=== PATIENT | male | born 1940 | race Caucasian/White ===

== ENCOUNTER → 2017-09-08 | Day surgery (SDC) | payer MEDICARE, BC ==
[~2017-09-08] MED LIST: Dexamethasone 4 MG/ML SDV IV ONE; Midazolam 1 MG/ML 2 ML SDV IV ONE; Povidone-Iodine 5% Sterile Ophth Soln 30 ML Bottle ONE; Sodium Chloride 0.9% 10 ML Syringe IV ONE
[2017-09-08] MEDS: Proparacaine 0.5% Ophth Soln 15 ML Bottle EYELF ONE (10:39)
[2017-09-08] MEDS: Sodium Chloride 0.9% 10 ML Syringe FLUSH SCH (10:41)
[2017-09-08] MEDS: Povidone-Iodine 5% Sterile Ophth Soln 30 ML Bottle EYELF ONE (10:42)
[2017-09-08] MEDS: Dexamethasone/Tobramycin 0.1-0.3% Ophth Susp 2.5 ML Bottle EYELF ONE (10:44)
[2017-09-08] MEDS: Phenylephrine 10% Ophth Soln 5 ML Bot EYELF ONE (10:46)
[2017-09-08] MEDS: Timolol Maleate 0.5% Ophth Soln 5 ML Bottle EYELF ONE (10:47)
[2017-09-08] MEDS: Dilation Soln 1 EA EACH EYELF ONE (10:48)
[2017-09-08] MEDS: Tetracaine HCl/PF 0.5% 4 ML Bottle EYELF ONE (11:23)
[2017-09-08] MEDS: Lidocaine 1% 30 ML SDV ONE (11:23)
[2017-09-08] MEDS: Apraclonidine 0.5% Ophth Soln 5 ML Bot EYELF ONE (11:23)
[2017-09-08] MEDS: Dexamethasone/Neomycin/Polymyxin B Ophth Oint 3.5 GM Tube EYELF ONE (11:23)
[2017-09-08] MEDS: Diclofenac Sodium 0.1% Ophth Soln 5 ML Bottle EYELF ONE (11:24)
[2017-09-08] MEDS: Chondroitin Sulfate/Hyaluronate Sodium Ophth Inj 0.5 ML Syringe IOCULAR ONE (11:24)
[2017-09-08] MEDS: Vancomycin 500 MG SDV EYELF ONE (11:24)
[2017-09-08] MEDS: Balanced Salt Solution Ophth Irrig 500 ML Bottle IOCULAR ONE (11:25)
[2017-09-08 13:18] VITALS: BP 151/84
--- NOTE | 2017-09-08 13:25 | OR ---
DATE: 09/08/2017 PREOPERATIVE DIAGNOSIS: Visually significant mixed senile cataract, left eye. POSTOPERATIVE DIAGNOSIS: Visually significant mixed senile cataract, left eye. PROCEDURE: Extracapsular cataract extraction with intraocular lens implant, left eye. ANESTHESIA: Topical/local MAC. COMPLICATIONS: None. INDICATION: Mr. Benton was seen in the clinic. He has had complaints of blurred vision, difficulty reading, difficulty seeing pill bottles. His clinical examination reveals 2 to 3+ mixed nuclear and central cortical cataract. I explained options to Mr. Benton, offered cataract surgery, and explained risks preoperatively including the potential for infection, retinal detachment, loss of vision, amongst others. We discussed implant options. He has requested a monofocal implant. OPERATIVE DESCRIPTION: After informed consent was obtained and the risks, benefits, and alternatives were explained, the patient was brought to the operative suite and topical anesthesia was administered. The patient was then prepped and draped in the sterile fashion and attention was placed on the left eye. A sterile lid speculum was placed into the left eye to allow operative exposure. A full-thickness paracentesis was made in the temporal portion of the operative eye. Preservative-free lidocaine 0.1 mL was injected into the anterior chamber followed by viscoelastic. A full-thickness corneal incision was then made into the anterior chamber. A bent needle cystotome was used to create a small agnieszka in the anterior capsule. The capsulorrhexis forceps was then used to create a 360-degree curvilinear capsulorrhexis. The nucleus was then removed using a phacoemulsification handpiece and the remaining cortical material was then removed with irrigation and aspiration handpiece. Following removal of the cortical material, the capsular bag was then inspected and noted to be free of any holes or tears. Viscoelastic was then injected into the capsular bag and the intraocular lens was inserted into the capsular bag. The viscoelastic material was then removed from both the anterior and posterior chambers and from behind the IOL. The lens and capsular bag were then reinspected. The IOL was well centered and the capsular bag intact. The wound and paracentesis sites were inspected and hydrated with balanced saline solution. Both were found to be self- sealing. The intraocular pressure was assessed digitally and found to be within normal range. A good red reflex was noted at the completion of the procedure. No complications occurred during the operation. At the completion of the procedure, Maxitrol, Voltaren, and Iopidine drops were placed into the operative eye. A sterile eye shield was placed over the operative eye and the patient was transported to the postoperative recovery area having tolerated the procedure well. Postoperative instructions were given along with a postoperative appointment. The patient was advised to call with any questions or concerns. No complications occurred. [facility] /[id number]
== END | disposition home or self-care (01) ==
LOC: DL.SDS 10:22
PROVIDERS: ATTEND Ophthalmology
DX: H25.811 Combined forms of age-related cataract, right eye (principal); I10 Essential (primary) hypertension; Z98.890 Other specified postprocedural states; Z79.82 Long term (current) use of aspirin; Z79.899 Other long term (current) drug therapy; Z88.1 Allergy status to other antibiotic agents
CPT/HCPCS: 00142; 66984; A9270; C1780; J1100; J2250; J3370; J7050

== ENCOUNTER 2017-09-15 08:55 | Day surgery (SDC) | payer MEDICARE, BC ==
[2017-09-15] MEDS ORDERED: Dexamethasone 4 MG/ML SDV IV ONE (08:56)
[2017-09-15] MEDS ORDERED: Sodium Chloride 0.9% 10 ML Syringe IV ONE (08:56)
[2017-09-15] MEDS ORDERED: Midazolam 1 MG/ML 2 ML SDV IV ONE (08:56)
[2017-09-15] MEDS ORDERED: Sodium Chloride 0.9% 10 ML Syringe FLUSH ONE (09:38)
[2017-09-15] MEDS ORDERED: Timolol Maleate 0.5% Ophth Soln 5 ML Bottle EYERT ONE (10:00)
[2017-09-15] MEDS ORDERED: Phenylephrine 10% Ophth Soln 5 ML Bot EYERT ONE (10:00)
[2017-09-15] MEDS ORDERED: Proparacaine 0.5% Ophth Soln 15 ML Bottle EYERT ONE (10:00)
[2017-09-15] MEDS ORDERED: Povidone-Iodine 5% Sterile Ophth Soln 30 ML Bottle EYERT ONE ×2 (10:00→10:21)
[2017-09-15] MEDS ORDERED: Dexamethasone/Tobramycin 0.1-0.3% Ophth Susp 2.5 ML Bottle EYERT ONE (10:00)
[2017-09-15] MEDS ORDERED: Dilation Soln 1 EA EACH EYERT ONE (10:00)
[2017-09-15] MEDS ORDERED: Tetracaine HCl/PF 0.5% 4 ML Bottle EYERT ONE (10:20)
[2017-09-15] MEDS ORDERED: Lidocaine 1% 30 ML SDV ONE (10:21)
[2017-09-15] MEDS ORDERED: Apraclonidine 0.5% Ophth Soln 5 ML Bot EYERT ONE (10:21)
[2017-09-15] MEDS ORDERED: Vancomycin 500 MG SDV EYERT ONE (10:22)
[2017-09-15] MEDS ORDERED: Dexamethasone/Neomycin/Polymyxin B Ophth Oint 3.5 GM Tube EYERT ONE (10:22)
[2017-09-15] MEDS ORDERED: Balanced Salt Solution Ophth Irrig 500 ML Bottle IOCULAR ONE (10:23)
[2017-09-15] MEDS ORDERED: Chondroitin Sulfate/Hyaluronate Sodium Ophth Inj 0.5 ML Syringe IOCULAR ONE (10:23)
--- NOTE | 2017-09-15 11:06 | OR ---
DATE: 09/15/2017 PREOPERATIVE DIAGNOSIS: Visually significant mixed cataract, right eye. POSTOPERATIVE DIAGNOSIS: Visually significant mixed cataract, right eye. PROCEDURE: Extracapsular cataract extraction with intraocular lens implant, right eye. ANESTHESIA: Topical/local MAC. COMPLICATIONS: None. INDICATION: Mr. Benton was seen in the clinic with complaints of blurred vision. Clinical examination reveals visually significant mixed nuclear and cortical cataract. He is symptomatic and unhappy with his vision. He requested surgery to improve vision and function. He requested a monofocal implant. OPERATIVE DESCRIPTION: After informed consent was obtained and the risks, benefits, and alternatives were explained, the patient was brought to the operative suite and topical anesthesia was administered. The patient was then prepped and draped in the sterile fashion and attention was placed on the right eye. A sterile lid speculum was placed into the right eye to allow operative exposure. A full-thickness paracentesis was made in the temporal portion of the operative eye. Preservative-free lidocaine 0.1 mL was injected into the anterior chamber followed by viscoelastic. A full-thickness corneal incision was then made into the anterior chamber. A bent needle cystotome was used to create a small agnieszka in the anterior capsule. The capsulorrhexis forceps was then used to create a 360-degree curvilinear capsulorrhexis. The nucleus was then removed using a phacoemulsification handpiece and the remaining cortical material was then removed with irrigation and aspiration handpiece. Following removal of the cortical material, the capsular bag was then inspected and noted to be free of any holes or tears. Viscoelastic was then injected into the capsular bag and the intraocular lens was inserted into the capsular bag. The viscoelastic material was then removed from both the anterior and posterior chambers and from behind the IOL. The lens and capsular bag were then reinspected. The IOL was well centered and the capsular bag intact. The wound and paracentesis sites were inspected and hydrated with balanced saline solution. Both were found to be self- sealing. The intraocular pressure was assessed digitally and found to be within normal range. A good red reflex was noted at the completion of the procedure. No complications occurred during the operation. At the completion of the procedure, Maxitrol, Voltaren, and Iopidine drops were placed into the operative eye. A sterile eye shield was placed over the operative eye and the patient was transported to the postoperative recovery area having tolerated the procedure well. Postoperative instructions were given along with a postoperative appointment. The patient was advised to call with any questions or concerns. No complications occurred. [facility] /[id number]
[2017-09-15 13:33] VITALS: BP 148/81
== END 2017-09-15 12:00 | disposition home or self-care (01) ==
LOC: DL.SDS 08:55
PROVIDERS: ATTEND Ophthalmology
DX: H25.811 Combined forms of age-related cataract, right eye (principal); I10 Essential (primary) hypertension; Z88.1 Allergy status to other antibiotic agents; Z79.899 Other long term (current) drug therapy
CPT/HCPCS: 00142; 66984; A9270; J1100; J2250; J3370; J7050; V2632

== ENCOUNTER 2019-06-16 17:21 | Observation (INO) | payer MEDICARE, BC ==
[2019-06-16] MEDS ORDERED: Morphine 2 MG/ML Syringe IVPUSH PRN (18:49)
[2019-06-16] MEDS ORDERED: Acetaminophen/HYDROcodone 325-10 MG Tab PO PRN (18:49)
[2019-06-16] MEDS ORDERED: IPRATROPIUM NASBOTH PRN (18:57)
[2019-06-16] MEDS ORDERED: Primidone 50 MG Tab PO SCH (19:00)
[2019-06-16] MEDS ORDERED: Ascorbic Acid 500 MG Tab PO SCH (19:00)
[2019-06-16] MEDS ORDERED: Sodium Chloride 0.9% 10 ML Syringe FLUSH PRN (19:15)
--- NOTE | 2019-06-16 19:15 | PCM.HP ---
H&P History of Present Illness - General Date of Service: 06/16/19 Admit Problem/Dx: Admission Diagnosis/Problem Admission Diagnosis/Problem Hyponatremia Source of Information: Patient, Family - History of Present Illness Initial Comments - Free Text/Narative: Mr. Benton is a 79-year-old male with past medical history significant for seizure disorder, prostate cancer currently on Lupron with worsening PSA, multiple sclerosis with lower extremity weakness and neurogenic bladder, hypertension, celiac disease, memory impairment was transferred to the hospital from outpatient appointment for further management of generalized weakness and back pain. Patient has been unable to stand since September of this year. Patient also had chronic indwelling [place] placed around the same time. said that approximately 4 weeks ago, she noticed foul-smelling urine. Urine cultures were obtained last week after patient developed an episode of back pain and he was positive for pseudomonas aeruginosa and Providencia rettgeri. Patient was treated with Bactrim for the past week, however back pain continued to be an issue. He presented today to outpatient appointment with primary care [employer]. Given continued back pain, and concern for UTI with resistant bacteria, patient was transferred here for further care. Of note, lab work today showed negative white blood cell count, but did show slight hyponatremia at 128. Upon interview , patient and family reported that back pain is mainly mechanical and related to position. Patient describes it as a band on the lower back, alleviated with laying down, exacerbated by sitting up from his chair. Patient denies any fevers, chills, any other systemic symptoms. Family said that his allergy to ciprofloxacin is diarrhea. Lower Back Pain Score (Numeric/FACES): 10 - Related Data Allergies/Adverse Reactions: Allergies Allergy/AdvReac Type Severity Reaction Status Date / Time ciprofloxacin [From Cipro] Allergy Mouth Sores Verified 06/16/19 17:40 nitrofurantoin Allergy Cannot Verified 06/16/19 17:40 [From Macrobid] Remember Home Medications: Home Meds Ascorbic Acid 1,000 mg PO .NOON 04/09/14 [History] Baclofen 20 mg PO BID 04/09/14 [History] Calcium Carb/Vitamin D3/Vit K1 [Calcium + D Soft Chewable Tab] 1 tab PO TIDAC [History] Donepezil HCl 10 mg PO BEDTIME 04/09/14 [History] Ipratropium [Atrovent 0.03% Nasal [place]] 2 sprays NASBOTH BID PRN 04/09/14 [ History] Leuprolide [Lupron Depot 4-Month] 30 mg IM .[id number] 04/09/14 [History] Multivitamin [Multi-Vitamin Daily] 2 tab PO DAILY 04/09/14 [History] Bass[place]-3/DHA/Epa/Fish Oil [Fish Oil 1,000 mg Softgel] 600 mg PO DAILY 04/09/14 [ History] Primidone 50 mg PO .SUPPER 04/09/14 [History] Valproic Acid [Depakene] 250 mg PO .MORNING,NOON 04/09/14 [History] Aspirin [Adult Low Dose Aspirin EC] 81 mg PO DAILY 07/03/16 [History] Cyanocobalamin (Vitamin B-12) [Vitamin B-12] 1,000 mcg PO DAILY 07/03/16 [ History] Omeprazole 20 mg PO DAILY 07/03/16 [History] Propranolol HCl 80 mg PO BID 07/03/16 [History] Lactobacillus Rhamnosus R0011 [Probiotic Digestive Care] 1 cap PO DAILY [History] Cranberry Fruit Concentrate [Cranberry] 900 mg PO .NOON, SUPPER 03/01/19 [ History] Valproic Acid 500 mg PO BEDTIME 03/01/19 [History] Cannabidiol (Cbd) Extract [CBD Oil] 1 drop TOP BID 06/16/19 [History] Dextromethorphan/guaiFENesin [Mucinex DM ER 600-30 MG] 1 tab PO BID PRN [History] Ergocalciferol (Vitamin D2) [Vitamin D2] 50,000 unit PO .TWICE A WEEK 06/16/19 [ History] Oxybutynin 5 mg PO BEDTIME 06/16/19 [History] Sulfamethoxazole/Trimethoprim [Bactrim 400-80 MG] 80 - 400 mg PO BID 06/16/19 [ History] guaiFENesin [Robitussin] 100 mg PO Q6H PRN 06/16/19 [History] Past Medical History - Past Health History Medical/Surgical History: Denies Medical/Surgical History HEENT History: Reports: Cataract, Impaired Vision Cardiovascular History: Reports: Hypertension Gastrointestinal History: Reports: Celiac Disease Genitourinary History: Reports: Retention, Urinary, UTI, Recurrent Other Genitourinary History: Sheffield cath Musculoskeletal History: Reports: Connective Tissue Disease, Osteoporosis, Other (See Below) Other Musculoskeletal History: Multiple Sclerosis, utilizes an electric scooter Neurological History: Reports: MS Other Neuro History: Seizures 2008 Oncologic (Cancer) History: Reports: Prostate Other Dermatologic History: none - Infectious Disease History Infectious Disease History: Reports: Chicken Pox - Past Surgical History HEENT Surgical History: Reports: None Cardiovascular Surgical History: Reports: None GI Surgical History: Reports: Hernia Repair/Other Male Surgical History: Reports: None Neurological Surgical History: Reports: None Musculoskeletal Surgical History: Reports: None Oncologic Surgical History: Reports: None Social & Family History - Family History Family Medical History: Noncontributory HEENT: Reports: Cataract - Tobacco Use Smoking Status *Q: Never Smoker Second Hand Smoke Exposure: No - Caffeine Use Caffeine Use: Reports: None - Recreational Drug Use Recreational Drug Use: No Recreational Drug Type: Reports: Marijuana/Hashish Recreational Drug Use Frequency: Daily - Living Situation & Occupation Living situation: Reports: , with Family Occupation: Disabled H&P Review of Systems - Review of Systems: Review Of Systems: Comprehensive ROS is negative, except as noted in HPI. Exam - Exam Exam: See Below - Vital Signs Vital Signs: Last Vital Signs Temp 36.2 C 06/16/19 18:16 Pulse 68 06/16/19 18:16 Resp 20 06/16/19 18:16 BP 176/82 H 06/16/19 18:16 Pulse Ox 96 06/16/19 18:16 Weight: 67.086 kg - Exam General: Alert, Cooperative Lungs: Clear to Auscultation, Normal Respiratory Effort Cardiovascular: Regular Rate, Regular Rhythm GI/Abdominal Exam: Normal Bowel Sounds, Soft, Non-Tender, Other (Sheffield in place) Extremities: Normal Inspection, No Pedal Edema Neurological: Other (Unable to lift left lower extremity against gravity, unable to lift right lower extremity against gravity, left is weaker than right) Neuro Extensive - Mental Status: Alert, Normal Mood/Affect Psychiatric: Alert, Normal Affect, Normal Mood - Patient Data Result Diagrams: 06/16/19 19:15 Imaging Impressions Last 24 hrs: Interpretation: 1. Severe dextrorotatory low lumbar scoliosis with signs of multilevel disc disease and hypertrophic spondylosis. Marked compression or insufficiency fracture T10 vertebral body with prominent Schmorl's node and early collapse of the L1 vertebra. 2. Normal reniform size and configuration bilaterally. Isolated tiny punctate calcifications respectively lower pole calyx left kidney and midpole contralateral right kidney (with adjacent 13 mm diameter cyst) i.e. urolithiasis. No pyelocaliectasis or ureterectasis. 3. Indwelling urinary catheter. Irregularly thickened small volume unenhanced urinary bladder. No stones. 4. Large 10 x 12 mm oval calcification RLQ that may be in normal caliber appendix i.e. appendicolith. No associated inflammatory changes or abscess. No sign of mechanical bowel obstruction. 5. Ectatic aorta with some scattered calcifications normal caliber aortoiliac vessels. 6. Inhomogeneously dense prostate gland (urethral catheter). 7. Contracted gallbladder RUQ. Liver, stomach, spleen, pancreas and adrenal glands unremarkable. Atelectasis and/or infiltrate posterior segment right lower lobe ( aspiration? Bronchiectasis?). CONCLUSION: Bilateral nephrolithiasis without associated signs of obstructive uropathy. Abnormal prostate gland. Calcified appendicolith RLQ. Insufficiency fractures T10 and L1 vertebral bodies. Rotoscoliosis and multilevel disc disease. Bronchiectasis. Problem List Initiated/Reviewed/Updated: Yes Orders Last 24hrs: Active Orders 24 hr Category Date Time Status Admission Status [Patient Status] [ADT] Routine ADT 06/16/19 17:30 Active Patient Status [ADT] Routine ADT 06/16/19 18:49 Ordered Oxygen Therapy [RC] PRN Care 06/16/19 18:49 Ordered Up With Assistance [RC] ASDIRECTED Care 06/16/19 18:49 Ordered VTE/DVT Education [RC] PER UNIT ROUTINE Care 06/16/19 18:49 Ordered Vital Signs [RC] Q4H Care 06/16/19 18:49 Ordered OT Evaluation and Treatment [CONS] Routine Cons 06/16/19 18:49 Ordered PT Evaluation and Treatment [CONS] Routine Cons 06/16/19 18:49 Ordered Regular Diet [DIET] Diet 06/16/19 Dinner Ordered BASIC METABOLIC PANEL,BMP [CHEM] AM Lab 06/17/19 05:11 Ordered BASIC METABOLIC PANEL,BMP [CHEM] Routine Lab 06/16/19 18:49 Ordered CBC WITH AUTO DIFF [HEME] AM Lab 06/17/19 05:11 Ordered CBC WITH AUTO DIFF [HEME] Routine Lab 06/16/19 18:49 Ordered MAGNESIUM [CHEM] Routine Lab 06/16/19 18:49 Ordered PHOSPHORUS [CHEM] Routine Lab 06/16/19 18:49 Ordered Acetaminophen/HYDROcodone [[place] 325-10 MG] Med 06/16/19 18:49 Ordered 1 tab PO Q4H PRN Ascorbic Acid [Vitamin C] Med 06/16/19 19:00 Ordered 1,000 mg PO .NOON Aspirin [Halfprin] Med 06/17/19 09:00 Ordered 81 mg PO DAILY Baclofen [Baclofen] Med 06/16/19 21:00 Ordered 20 mg PO BID Calcium Carb/Vitamin D3/Vit K1 [Calcium + D Soft Med 06/17/19 06:00 Ordered Chewable Tab] 1 tab PO TIDAC Cannabidiol (Cbd) Extract [CBD Oil] Med 06/16/19 21:00 Ordered 1 drop TOP BID Cranberry Fruit Concentrate [Cranberry] Med 06/16/19 19:00 Ordered 900 mg PO .NOON, SUPPER Cyanocobalamin (Vitamin B-12) [Vitamin B-12] Med 06/17/19 09:00 Ordered 1,000 mcg PO DAILY Donepezil [Aricept] Med 06/16/19 21:00 Ordered 10 mg PO BEDTIME Enoxaparin [Lovenox] Med 06/17/19 09:00 Ordered 40 mg SUBCUT DAILY Ergocalciferol (Vitamin D2) [Vitamin D2] Med 06/16/19 19:00 Ordered 50,000 unit PO .TWICE A WEEK Ipratropium [Atrovent 0.03% Nasal [place]] Med 06/16/19 18:57 Ordered 2 sprays NASBOTH BID PRN Morphine Med 06/16/19 18:49 Ordered 2 mg IVPUSH Q2H PRN Multivitamin [Multi-Vitamin Daily] Med 06/17/19 09:00 Ordered 2 tab PO DAILY Bassett-3/DHA/Epa/Fish Oil [Fish Oil 1,000 mg Softgel] Med 06/17/19 09:00 Ordered 600 mg PO DAILY Omeprazole Med 06/17/19 09:00 Ordered 20 mg PO DAILY Oxybutynin Med 06/16/19 21:00 Ordered 5 mg PO BEDTIME Primidone [Mysoline] Med 06/16/19 19:00 Ordered 50 mg PO .SUPPER Propranolol HCl [Propranolol HCl] Med 06/16/19 21:00 Ordered 80 mg PO BID Valproic Acid [Depakene] Med 06/16/19 19:00 Ordered 250 mg PO .MORNING,NOON Valproic Acid [Depakene] Med 06/16/19 21:00 Ordered 500 mg PO BEDTIME Foot Pump [OM.PC] Per Unit Routine Oth 06/16/19 18:54 Ordered Resuscitation Status Routine Resus Stat 06/16/19 18:49 Ordered Medication Orders Hydrocodone Bitart/Acetaminophen ([place] 325-10 Mg) 1 tab PO Q4H PRN PRN Reason: Pain (moderate 4-6) Ascorbic Acid (Vitamin C) 1,000 mg PO .NOON ALEXY Aspirin (Halfprin) 81 mg PO DAILY ALXEY Donepezil HCl (Aricept) 10 mg PO BEDTIME ALEXY Enoxaparin Sodium (Lovenox) 40 mg SUBCUT DAILY ALEXY Ergocalciferol (Vitamin D2) mg PO .TWICE A WEEK ALEXY Morphine Sulfate (Morphine) 2 mg IVPUSH Q2H PRN PRN Reason: Pain (severe 7-10) Non-Formulary Medication (Ipratropium [Atrovent 0.03% Nasal [place]]) 2 sprays NASBOTH BID PRN PRN Reason: Allergies Non-Formulary Medication (Cranberry Fruit Concentrate [Cranberry]) 900 mg PO .NOON, SUPPER ALEXY Non-Formulary Medication (Baclofen [Baclofen]) 20 mg PO BID ALEXY Non-Formulary Medication (Cannabidiol (Cbd) Extract [Cbd Oil]) 1 drop TOP BID ALEXY Non-Formulary Medication (Propranolol Hcl [Propranolol Hcl]) 80 mg PO BID ALEXY Non-Formulary Medication (Calcium Carb/Vitamin D3/Vit K1 [Calcium + D Soft Chewable Tab]) 1 tab PO TIDAC ALEXY Non-Formulary Medication (Cyanocobalamin (Vitamin B-12) [Vitamin B-12]) 1,000 mcg PO DAILY ALEXY Non-Formulary Medication (Multivitamin [Multi-Vitamin Daily]) 2 tab PO DAILY ALEXY Non-Formulary Medication (Bassett-3/Dha/Epa/Fish Oil [Fish Oil 1,000 Mg Softgel]) 600 mg PO DAILY ALEXY Omeprazole (Omeprazole) 20 mg PO DAILY ALEXY Oxybutynin Chloride (Oxybutynin) 5 mg PO BEDTIME ALEXY Primidone (Mysoline) 50 mg PO .SUPPER ALEXY Valproic Acid (Depakene) 250 mg PO .MORNING,NOON [facility] Valproic Acid (Depakene) 500 mg PO BEDTIME [facility] Assessment/Plan Comment:: Intractable back pain No evidence of metastatic disease on CT We will start patient on hydrocodone, and will give IV morphine for severe pain Patient is already on baclofen, unclear if he would benefit from adding Flexeril Patient is scheduled to have PET scan with Dr. Marcum on June 23 Hyponatremia mild Could be related to dehydration We will start patient on IV normal saline Check BMP tomorrow MS with neurogenic bladder Continue home oxybutynin, baclofen Memory impairment donepezil Positive urine cultures Likely colonizers as patient does not have any evidence of systemic infections, and back pain is unrelated to presence of bacteria Discussed with family, will hold off any more antibiotics Seizure disorder continue home antiepileptics Celiac disease Gluten-free diet Hypertension Continue home propranolol DVT prophylaxis Lovenox
[2019-06-16 19:39] LABS: ANION GAP 13.1; CHLORIDE,CL 90 mmol/L (101-111); SODIUM,NA 127 mmol/L (135-145)
[2019-06-16] MEDS: Sodium Chloride 0.9% 1,000 ML IV SCH (19:58)
[2019-06-16] MEDS ORDERED: PRIMIDONE 50 MG PO SCH (20:25)
[2019-06-16] MEDS ORDERED: OXYBUTYNIN 5 MG PO SCH (21:00)
[2019-06-16] MEDS ORDERED: Baclofen 10 MG Tab PO SCH (21:00)
[2019-06-16] MEDS ORDERED: CANNABIDIOL TOP SCH (21:00)
[2019-06-16] MEDS ORDERED: Donepezil 10 MG Tab**OWN MED PO SCH (21:00)
[2019-06-16] MEDS ORDERED: VALPROIC ACID 250 MG PO SCH (21:00)
[2019-06-16] MEDS: PROPRANOLOL 80 MG PO SCH (21:24)
[2019-06-16] MEDS: [UNRECOGNIZED DRUG - OTHER] PO SCH (21:24)
[2019-06-17] MEDS: CALCIUM CARB PO SCH ×2 (05:48→11:36)
[2019-06-17] MEDS: [UNRECOGNIZED DRUG - OTHER] PO SCH ×2 (05:48→11:36)
[2019-06-17] MEDS ORDERED: Omeprazole 20 MG Cap.CR**OWN MED PO SCH (06:00)
[2019-06-17 06:43] LABS: ANION GAP 12.2; CHLORIDE,CL 95 mmol/L (101-111); SODIUM,NA 129 mmol/L (135-145)
[2019-06-17] MEDS: VALPROIC ACID 250 MG PO SCH ×2 (08:18→11:39)
[2019-06-17] MEDS: PROPRANOLOL 80 MG PO SCH (08:21)
[2019-06-17] MEDS ORDERED: Aspirin 81 MG Tab.EC **OWN MED PO SCH (09:00)
[2019-06-17] MEDS ORDERED: CYANOCOBALAMIN 1000 MCG PO SCH (09:00)
[2019-06-17] MEDS ORDERED: Enoxaparin 40 MG/0.4 ML Syringe SUBCUT SCH (09:00)
[2019-06-17] MEDS ORDERED: BACLOFEN 20 MG PO SCH (09:00)
[2019-06-17] MEDS ORDERED: Lidocaine 5% 700 MG Patch TOP SCH (09:00)
[2019-06-17] MEDS ORDERED: MULTIVITAMIN PO SCH (09:00)
[2019-06-17] MEDS ORDERED: Cyanocobalamin (Vitamin B12) 1,000 MCG Tab PO SCH (09:00)
--- NOTE | 2019-06-17 09:14 | PCM.PN ---
- General Info Date of Service: 06/17/19 Admission Dx/Problem (Free Text): Admission Diagnosis/Problem Admission Diagnosis/Problem Hyponatremia Subjective Update: patient continues to have sacral back pain. lidocaine patch will be placed to see if patient feels better. he would like to go home if possible. sodium today is 129. - Patient Data Vitals - Most Recent: Last Vital Signs Temp 36.7 C 06/17/19 03:58 Pulse 69 06/17/19 03:58 Resp 20 06/17/19 03:58 BP 169/83 H 06/17/19 03:58 Pulse Ox 95 06/17/19 03:58 Weight - Most Recent: 66.678 kg I&O - Last 24 Hours: Intake & Output 06/16/19 06/17/19 06/17/19 22:59 06:59 14:59 Intake Total 752 Output Total 300 1550 Balance -300 -798 Lab Results Last 24 Hours: Laboratory Results - last 24 hr 06/16/19 06/16/19 06/17/19 Range/Units 19:15 19:15 05:50 WBC 11.2 H 8.8 (5.0-10.0) 10^3/uL RBC 4.63 4.48 L (4.6-6.2) 10^6/uL Hgb 15.3 D 14.9 (14.0-18.0) g/dL Hct 44.1 42.9 (40.0-54.0) % MCV 95.2 95.8 (80-100) fL MCH 33.0 33.3 (27.0-34.0) pg MCHC 34.7 34.7 (33.0-35.0) g/dL Plt Count 225 217 (150-450) 10^3/uL Neut % (Auto) 57.8 55.1 (42.2-75.2) % Lymph % (Auto) 26.5 24.6 (20.5-50.1) % [place] % (Auto) 12.6 H 17.1 H (2-8) % Eos % (Auto) 2.7 2.9 (1.0-3.0) % Baso % (Auto) 0.4 0.3 (0.0-1.0) % Sodium 127 L (135-145) mmol/L Potassium 5.1 H (3.6-5.0) mmol/L Chloride 90 L (101-111) mmol/L Carbon Dioxide 29.0 (21.0-31.0) mmol/L Anion Gap 13.1 BUN 17 (7-18) mg/dL Creatinine 0.7 (0.6-1.3) mg/dL Est Cr Clr Drug Dosing 82.53 mL/min Estimated GFR (MDRD) > 60 Glucose 91 (74-105) mg/dL Calcium 9.1 (8.4-10.2) mg/dl Phosphorus 3.8 (2.5-4.6) mg/dL Magnesium 1.9 (1.8-2.5) mg/dL 06/17/19 Range/Units 05:50 WBC (5.0-10.0) 10^3/uL RBC (4.6-6.2) 10^6/uL Hgb (14.0-18.0) g/dL Hct (40.0-54.0) % MCV (80-100) fL MCH (27.0-34.0) pg MCHC (33.0-35.0) g/dL Plt Count (150-450) 10^3/uL Neut % (Auto) (42.2-75.2) % Lymph % (Auto) (20.5-50.1) % [place] % (Auto) (2-8) % Eos % (Auto) (1.0-3.0) % Baso % (Auto) (0.0-1.0) % Sodium 129 L (135-145) mmol/L Potassium 4.2 (3.6-5.0) mmol/L Chloride 95 L (101-111) mmol/L Carbon Dioxide 26.0 (21.0-31.0) mmol/L Anion Gap 12.2 BUN 14 (7-18) mg/dL Creatinine 0.7 (0.6-1.3) mg/dL Est Cr Clr Drug Dosing 82.02 mL/min Estimated GFR (MDRD) > 60 Glucose 104 (74-105) mg/dL Calcium 8.8 (8.4-10.2) mg/dl Phosphorus (2.5-4.6) mg/dL Magnesium (1.8-2.5) mg/dL Med Orders - Current: Current Medications Hydrocodone Bitart/Acetaminophen ([place] 325-10 Mg) 1 tab PO Q4H PRN PRN Reason: Pain (moderate 4-6) Last Admin: 06/16/19 21:25 Dose: 1 tab Aspirin (Halfprin) 81 mg PO DAILY [facility] Last Admin: 06/17/19 08:20 Dose: 81 mg Cyanocobalamin (Vitamin B12) 1,000 mcg PO DAILY [facility] Last Admin: 06/17/19 08:25 Dose: 1,000 mcg Donepezil HCl (Aricept) 10 mg PO BEDTIME [facility] Last Admin: 06/16/19 21:22 Dose: 10 mg Enoxaparin Sodium (Lovenox) 40 mg SUBCUT DAILY [facility] Last Admin: 06/17/19 08:27 Dose: Not Given Ergocalciferol (Vitamin D2) 1.25 mg PO MoTh@0900 [facility] Sodium Chloride (Normal Saline) 1,000 mls @ 75 mls/hr IV ASDIRECTED [facility] Last Admin: 06/16/19 19:58 Dose: 75 mls/hr Lidocaine (Lidoderm 5%) 700 mg TOP Q24H [facility] Morphine Sulfate (Morphine) 2 mg IVPUSH Q2H PRN PRN Reason: Pain (severe 7-10) Multivitamins (Thera) 2 each PO DAILY [facility] Last Admin: 06/17/19 08:23 Dose: 2 each Ipratropium [ Atrovent 0.03% Nasal [place]] 2 Sprays 2 sprays NASBOTH BID PRN PRN Reason: Allergies Last Admin: 06/16/19 21:25 Dose: 2 sprays Cranberry Fruit Concentrate [ Cranberry] 1000mg Own Med 1,000 mg PO BID@ 1200,1800 [facility] Last Admin: 06/16/19 21:24 Dose: 1,000 mg Propranolol 80mg (Own Med) 80 each PO BID [facility] Last Admin: 06/17/19 08:21 Dose: 80 each Calcium Carb + Vit D (Gummy Own Med) 1 tab PO TIDAC [facility] Last Admin: 06/17/19 05:48 Dose: 1 tab Tenmile-3/Fish Oil 520mg Cap Own Med 0 mg PO DAILY@1200 ALEXY Omeprazole (Omeprazole) 20 mg PO ACBREAKFAST [facility] Last Admin: 06/17/19 05:47 Dose: 20 mg Oxybutynin Chloride (Oxybutynin) 5 mg PO BEDTIME [facility] Last Admin: 06/16/19 21:23 Dose: 5 mg Vitamin C Gummy (240mg Own Med) 0 each PO BID@1800,2100 [facility] Vitamin C Gummy (240mg Own Med) 0 each PO DAILY@1200 [facility] Baclofen 20 Mg Tab (Own Med) 0 each PO BID [facility] Last Admin: 06/17/19 08:21 Dose: 1 each Polyethylene Glycol (Miralax) 17 gm PO DAILY [facility] Primidone (Mysoline) 50 mg PO WITHDINNER [facility] Sodium Chloride (Saline Flush) 10 ml FLUSH ASDIRECTED PRN PRN Reason: Keep Vein Open Valproic Acid (Depakene) 250 mg PO BID@0800,1200 [facility] Last Admin: 06/17/19 08:18 Dose: 250 mg Valproic Acid (Depakene) 500 mg PO BEDTIME [facility] Last Admin: 06/16/19 21:22 Dose: 500 mg Discontinued Medications Ascorbic Acid (Vitamin C) 1,000 mg PO DAILY@1200 [facility] Last Admin: 06/16/19 19:59 Dose: Not Given Baclofen (Lioresal) 20 mg PO BID [facility] Last Admin: 06/16/19 23:10 Dose: Not Given Cyanocobalamin (Vitamin B12) 1,000 mcg PO DAILY [facility] Non-Formulary Medication (Cannabidiol (Cbd) Extract [Cbd Oil]) 1 drop TOP BID [facility] Primidone (Mysoline) 50 mg PO WITHDINNER [facility] Last Admin: 06/16/19 22:16 Dose: Not Given - Exam General: Alert Lungs: Clear to Auscultation, Normal Respiratory Effort Cardiovascular: Regular Rate, Regular Rhythm GI/Abdominal Exam: Normal Bowel Sounds, Soft, Non-Tender Extremities: Normal Inspection, Pedal Edema Skin: Warm, Dry, Intact Neurological: No New Focal Deficit Psy/Mental Status: Alert, Normal Affect - Problem List Review Problem List Initiated/Reviewed/Updated: Yes - My Orders Last 24 Hours: My Active Orders 06/16/19 17:30 Admission Status [Patient Status] [ADT] Routine 06/16/19 18:49 Patient Status [ADT] Routine Oxygen Therapy [RC] .PRN Up With Assistance [RC] ASDIRECTED VTE/DVT Education [RC] PER UNIT ROUTINE Vital Signs [RC] Q4HR OT Evaluation and Treatment [CONS] Routine PT Evaluation and Treatment [CONS] Routine Acetaminophen/HYDROcodone [[place] 325-10 MG] 1 tab PO Q4H PRN Morphine 2 mg IVPUSH Q2H PRN Resuscitation Status Routine 06/16/19 18:57 Ipratropium [Atrovent 0.03% Nasal [place]] 2 sprays NASBOTH BID PRN 06/16/19 19:00 Cranberry Fruit Concentrate [Cranberry] 1,000 mg PO BID@1200,1800 06/16/19 19:15 Peripheral IV Care [RC] Sodium Chloride 0.9% [Saline Flush] 10 ml FLUSH ASDIRECTED PRN Peripheral IV Insertion Adult [OM.PC] Routine 06/16/19 19:30 Sodium Chloride 0.9% [Normal Saline] 1,000 ml IV ASDIRECTED 06/16/19 19:49 Antiembolic Devices [RC] PER UNIT ROUTINE Sequential Compression Device [OM.PC] Routine 06/16/19 20:25 Primidone [Mysoline] 50 mg PO WITHDINNER 06/16/19 21:00 Donepezil [Aricept] 10 mg PO BEDTIME Non-Formulary Medication [NF Drug] 80 each PO BID Oxybutynin 5 mg PO BEDTIME Valproic Acid [Depakene] 500 mg PO BEDTIME 06/16/19 21:48 K Pad [Heat Therapy] [OM.PC] Routine 06/16/19 Dinner Regular Diet [DIET] 06/17/19 06:00 Calcium Carb/Vitamin D3/Vit K1 [Calcium + D Soft Chewable Tab] 1 tab PO TIDAC Omeprazole 20 mg PO ACBREAKFAST 06/17/19 08:00 Valproic Acid [Depakene] 250 mg PO BID@0800,1200 06/17/19 09:00 Aspirin [Halfprin] 81 mg PO DAILY Cyanocobalamin (Vitamin B12) [Vitamin B12] 1,000 mcg PO DAILY Enoxaparin [Lovenox] 40 mg SUBCUT DAILY Multivitamins,Therapeutic [Thera] 2 each PO DAILY Patient's Own Medication [Ptom] 0 each PO BID 06/17/19 09:15 Lidocaine 5% [Lidoderm 5%] 700 mg TOP Q24H Polyethylene Glycol 3350 [MiraLAX] 17 gm PO DAILY 06/17/19 12:00 Ten[place]-3/DHA/Epa/Fish Oil [Fish Oil 1,000 mg Softgel] 0 mg PO DAILY@1200 Patient's Own Medication [Ptom] 0 each PO DAILY@1200 06/17/19 18:00 Patient's Own Medication [Ptom] 0 each PO BID@1800,2100 06/19/19 09:00 Ergocalciferol (Vitamin D2) [Vitamin D2] 1.25 mg PO MoTh@0900 - Plan Plan:: Intractable back pain No evidence of metastatic disease on CT continue hydrocodone and IV morphine will add lidocaine patch Hyponatremia mild Could be related to dehydration continue IVF MS with neurogenic bladder Continue home oxybutynin, baclofen Memory impairment donepezil Positive urine cultures Likely colonizers as patient does not have any evidence of systemic infections, and back pain is unrelated to presence of bacteria Discussed with family, will hold off any more antibiotics Seizure disorder continue home antiepileptics Celiac disease Gluten-free diet Hypertension Continue home propranolol DVT prophylaxis Lovenox, patient refusing
[2019-06-17] MEDS ORDERED: Polyethylene Glycol 3350 Powder 17 GM Packet PO SCH (09:15)
[2019-06-17] MEDS: Sodium Chloride 0.9% 1,000 ML IV SCH (09:17)
[2019-06-17 10:08] VITALS: BP 145/81; PULSE 76
[2019-06-17] MEDS: [UNRECOGNIZED DRUG - OTHER] PO SCH (11:38)
--- NOTE | 2019-06-17 11:47 | PCM.DCSUM1 ---
Discharge Summary - Hospital Course Free Text/Narrative:: Mr. Benton is a 79-year-old male with past medical history significant for seizure disorder, prostate cancer currently on Lupron with worsening PSA, multiple sclerosis with lower extremity weakness and neurogenic bladder, hypertension, celiac disease, memory impairment was transferred to the hospital from outpatient appointment for further management of generalized weakness and back pain. Patient has been unable to stand since September of this year. Patient also had chronic indwelling [place] placed around the same time. said that approximately 4 weeks ago, she noticed foul-smelling urine. Urine cultures were obtained last week after patient developed an episode of back pain and he was positive for pseudomonas aeruginosa and Providencia rettgeri. Patient was treated with Bactrim for the past week, however back pain continued to be an issue. He presented to outpatient appointment with primary care [employer]. Given continued back pain, and concern for UTI with resistant bacteria, patient was transferred here for further care. patient was hyponatremic at 128, asymptomatic. patient back pain was treated with PO hydrocodone, but lidocaine patch worked best. he was discharged home with home health in stable condition. - Discharge Data Discharge Date: 06/17/19 Discharge Disposition: Home, Home Health Agency 06 Condition: Good - Referral to Home Health Date of Face to Face Encounter: 06/17/19 Reason for Homebound Status: due to multiple sclerosis, patient requires the assistance of caregiver and has not been able to use the walker recently. leaving home would require a taxing effort. Primary Care Physician: Olga Phillips NP Skilled Need: PT, Home health nurse - Patient Summary/Data Consults: Consultations 06/16/19 18:49 OT Evaluation and Treatment [CONS] Routine PT Evaluation and Treatment [CONS] Routine - Discharge Plan *PRESCRIPTION DRUG MONITORING PROGRAM REVIEWED*: Not Applicable *COPY OF PRESCRIPTION DRUG MONITORING REPORT IN PATIENT AMY: Not Applicable Prescriptions/Med Rec: Lidocaine 5% [Lidoderm 5%] 700 mg TOP Q24H #30 patch Home Medications: Home Meds Ascorbic Acid 1,000 mg PO .NOON 04/09/14 [History] Baclofen 20 mg PO BID 04/09/14 [History] Calcium Carb/Vitamin D3/Vit K1 [Calcium + D Soft Chewable Tab] 1 tab PO TIDAC [History] Donepezil HCl 10 mg PO BEDTIME 04/09/14 [History] Ipratropium [Atrovent 0.03% Nasal [place]] 2 sprays NASBOTH BID PRN 04/09/14 [ History] Leuprolide [Lupron Depot 4-Month] 30 mg IM .[id number] 04/09/14 [History] Multivitamin [Multi-Vitamin Daily] 2 tab PO DAILY 04/09/14 [History] [place]-3/DHA/Epa/Fish Oil [Fish Oil 1,000 mg Softgel] 600 mg PO DAILY 04/09/14 [ History] Primidone 50 mg PO .SUPPER 04/09/14 [History] Valproic Acid [Depakene] 250 mg PO .MORNING,NOON 04/09/14 [History] Aspirin [Adult Low Dose Aspirin EC] 81 mg PO DAILY 07/03/16 [History] Cyanocobalamin (Vitamin B-12) [Vitamin B-12] 1,000 mcg PO DAILY 07/03/16 [ History] Omeprazole 20 mg PO DAILY 07/03/16 [History] Propranolol HCl 80 mg PO BID 07/03/16 [History] Lactobacillus Rhamnosus R0011 [Probiotic Digestive Care] 1 cap PO DAILY [History] Cranberry Fruit Concentrate [Cranberry] 900 mg PO .NOON, SUPPER 03/01/19 [ History] Valproic Acid 500 mg PO BEDTIME 03/01/19 [History] Cannabidiol (Cbd) Extract [CBD Oil] 1 drop TOP BID 06/16/19 [History] Ergocalciferol (Vitamin D2) [Vitamin D2] 50,000 unit PO .TWICE A WEEK 06/16/19 [ History] Oxybutynin 5 mg PO BEDTIME 06/16/19 [History] guaiFENesin [Robitussin] 100 mg PO Q6H PRN 06/16/19 [History] Cider Vinegar [Apple Cider Vinegar] 450 mg PO DAILY 06/17/19 [History] Guaifen/Dextromethorphan/PE [Mucinex Fast-Max Congest-Cough] 20 ml PO Q4H [History] Lidocaine 5% [Lidoderm 5%] 700 mg TOP Q24H #30 patch 06/17/19 [Rx] Patient Handouts: Hyponatremia, [id number], Catheter-Associated Urinary Tract Infection FAQs - MARCANO, Acute Back Pain, Adult - Discharge Summary/Plan Comment DC Time >30 min.: Yes - General Info Date of Service: 06/17/19 Admission Dx/Problem (Free Text: Admission Diagnosis/Problem Admission Diagnosis/Problem Hyponatremia Subjective Update: patient continues to have sacral back pain. patient felt better with the lidocaine patch. - Patient Data Vitals - Most Recent: Last Vital Signs Temp 37.0 C 06/17/19 08:00 Pulse 76 06/17/19 08:00 Resp 20 06/17/19 08:00 BP 145/81 H 06/17/19 08:00 Pulse Ox 95 06/17/19 08:00 Weight - Most Recent: 66.678 kg I&O - Last 24 hours: Intake & Output 06/16/19 06/17/19 06/17/19 22:59 06:59 14:59 Intake Total 752 608 Output Total 300 1550 Balance -300 -798 608 Lab Results - Last 24 hrs: Laboratory Results - last 24 hr 06/16/19 06/16/19 06/17/19 Range/Units 19:15 19:15 05:50 WBC 11.2 H 8.8 (5.0-10.0) 10^3/uL RBC 4.63 4.48 L (4.6-6.2) 10^6/uL Hgb 15.3 D 14.9 (14.0-18.0) g/dL Hct 44.1 42.9 (40.0-54.0) % MCV 95.2 95.8 (80-100) fL MCH 33.0 33.3 (27.0-34.0) pg MCHC 34.7 34.7 (33.0-35.0) g/dL Plt Count 225 217 (150-450) 10^3/uL Neut % (Auto) 57.8 55.1 (42.2-75.2) % Lymph % (Auto) 26.5 24.6 (20.5-50.1) % [place] % (Auto) 12.6 H 17.1 H (2-8) % Eos % (Auto) 2.7 2.9 (1.0-3.0) % Baso % (Auto) 0.4 0.3 (0.0-1.0) % Sodium 127 L (135-145) mmol/L Potassium 5.1 H (3.6-5.0) mmol/L Chloride 90 L (101-111) mmol/L Carbon Dioxide 29.0 (21.0-31.0) mmol/L Anion Gap 13.1 BUN 17 (7-18) mg/dL Creatinine 0.7 (0.6-1.3) mg/dL Est Cr Clr Drug Dosing 82.53 mL/min Estimated GFR (MDRD) > 60 Glucose 91 (74-105) mg/dL Calcium 9.1 (8.4-10.2) mg/dl Phosphorus 3.8 (2.5-4.6) mg/dL Magnesium 1.9 (1.8-2.5) mg/dL 06/17/19 Range/Units 05:50 WBC (5.0-10.0) 10^3/uL RBC (4.6-6.2) 10^6/uL Hgb (14.0-18.0) g/dL Hct (40.0-54.0) % MCV (80-100) fL MCH (27.0-34.0) pg MCHC (33.0-35.0) g/dL Plt Count (150-450) 10^3/uL Neut % (Auto) (42.2-75.2) % Lymph % (Auto) (20.5-50.1) % [place] % (Auto) (2-8) % Eos % (Auto) (1.0-3.0) % Baso % (Auto) (0.0-1.0) % Sodium 129 L (135-145) mmol/L Potassium 4.2 (3.6-5.0) mmol/L Chloride 95 L (101-111) mmol/L Carbon Dioxide 26.0 (21.0-31.0) mmol/L Anion Gap 12.2 BUN 14 (7-18) mg/dL Creatinine 0.7 (0.6-1.3) mg/dL Est Cr Clr Drug Dosing 82.02 mL/min Estimated GFR (MDRD) > 60 Glucose 104 (74-105) mg/dL Calcium 8.8 (8.4-10.2) mg/dl Phosphorus (2.5-4.6) mg/dL Magnesium (1.8-2.5) mg/dL Med Orders - Current: Current Medications Hydrocodone Bitart/Acetaminophen ([place] 325-10 Mg) 1 tab PO Q4H PRN PRN Reason: Pain (moderate 4-6) Last Admin: 06/16/19 21:25 Dose: 1 tab Aspirin (Halfprin) 81 mg PO DAILY [facility] Last Admin: 06/17/19 08:20 Dose: 81 mg Cyanocobalamin (Vitamin B12) 1,000 mcg PO DAILY [facility] Last Admin: 06/17/19 08:25 Dose: 1,000 mcg Donepezil HCl (Aricept) 10 mg PO BEDTIME [facility] Last Admin: 06/16/19 21:22 Dose: 10 mg Enoxaparin Sodium (Lovenox) 40 mg SUBCUT DAILY [facility] Last Admin: 06/17/19 08:27 Dose: Not Given Ergocalciferol (Vitamin D2) 1.25 mg PO MoTh@0900 [facility] Sodium Chloride (Normal Saline) 1,000 mls @ 75 mls/hr IV ASDIRECTED [facility] Last Admin: 06/17/19 09:17 Dose: 75 mls/hr Lidocaine (Lidoderm 5%) 700 mg TOP Q24H [facility] Last Admin: 06/17/19 09:25 Dose: 700 mg Miscellaneous Information (Remove Patch) 1 ea TRDERM DAILY@2100 [facility] Morphine Sulfate (Morphine) 2 mg IVPUSH Q2H PRN PRN Reason: Pain (severe 7-10) Multivitamins (Thera) 2 each PO DAILY [facility] Last Admin: 06/17/19 08:23 Dose: 2 each Ipratropium [ Atrovent 0.03% Nasal [place]] 2 Sprays 2 sprays NASBOTH BID PRN PRN Reason: Allergies Last Admin: 06/16/19 21:25 Dose: 2 sprays Cranberry Fruit Concentrate [ Cranberry] 1000mg Own Med 1,000 mg PO BID@ 1200,1800 [facility] Last Admin: 06/16/19 21:24 Dose: 1,000 mg Propranolol 80mg (Own Med) 80 each PO BID [facility] Last Admin: 06/17/19 08:21 Dose: 80 each Calcium Carb + Vit D (Gummy Own Med) 1 tab PO TIDAC [facility] Last Admin: 06/17/19 05:48 Dose: 1 tab [place]-3/Fish Oil 520mg Cap Own Med 0 mg PO DAILY@1200 [facility] Omeprazole (Omeprazole) 20 mg PO ACBREAKFAST [facility] Last Admin: 06/17/19 05:47 Dose: 20 mg Oxybutynin Chloride (Oxybutynin) 5 mg PO BEDTIME [facility] Last Admin: 06/16/19 21:23 Dose: 5 mg Vitamin C Gummy (240mg Own Med) 0 each PO BID@1800,2100 [facility] Vitamin C Gummy (240mg Own Med) 0 each PO DAILY@1200 [facility] Baclofen 20 Mg Tab (Own Med) 0 each PO BID [facility] Last Admin: 06/17/19 08:21 Dose: 1 each Polyethylene Glycol (Miralax) 17 gm PO DAILY [facility] Last Admin: 06/17/19 09:25 Dose: 17 gm Primidone (Mysoline) 50 mg PO WITHDINNER [facility] Sodium Chloride (Saline Flush) 10 ml FLUSH ASDIRECTED PRN PRN Reason: Keep Vein Open Valproic Acid (Depakene) 250 mg PO BID@0800,1200 [facility] Last Admin: 06/17/19 08:18 Dose: 250 mg Valproic Acid (Depakene) 500 mg PO BEDTIME [facility] Last Admin: 06/16/19 21:22 Dose: 500 mg Discontinued Medications Ascorbic Acid (Vitamin C) 1,000 mg PO DAILY@1200 [facility] Last Admin: 06/16/19 19:59 Dose: Not Given Baclofen (Lioresal) 20 mg PO BID [facility] Last Admin: 06/16/19 23:10 Dose: Not Given Cyanocobalamin (Vitamin B12) 1,000 mcg PO DAILY [facility] Non-Formulary Medication (Cannabidiol (Cbd) Extract [Cbd Oil]) 1 drop TOP BID [facility] Primidone (Mysoline) 50 mg PO WITHDINNER [facility] Last Admin: 06/16/19 22:16 Dose: Not Given - Exam Physical Findings Comments:: see exam findings from progress note earlier today.
[2019-06-17] MEDS ORDERED: OMEGA PO SCH (12:00)
[2019-06-17] MEDS ORDERED: VITAMIN C GUMMY PO SCH ×2 (12:00→18:00)
[2019-06-17] MEDS ORDERED: FISH OIL PO SCH (12:00)
[2019-06-17] MEDS ORDERED: Ascorbic Acid 500 MG Tab PO SCH (12:00)
[2019-06-19] MEDS ORDERED: ERGOCALCIFEROL 1.25 MG PO SCH (09:00)
== END 2019-06-17 12:40 | disposition home health service (06) ==
LOC: DL.MS 17:30
PROVIDERS: ADMIT Internal Medicine; ATTEND Internal Medicine
DX: E87.1 Hypo-osmolality and hyponatremia (principal); M54.9 Dorsalgia, unspecified; G35 Multiple sclerosis; N31.9 Neuromuscular dysfunction of bladder, unspecified; I10 Essential (primary) hypertension; C61 Malignant neoplasm of prostate; G40.909 Epilepsy, unspecified, not intractable, without status epilepticus; M81.0 Age-related osteoporosis without current pathological fracture; K90.0 Celiac disease; R41.3 Other amnesia; Z88.1 Allergy status to other antibiotic agents; Z79.82 Long term (current) use of aspirin; Z79.899 Other long term (current) drug therapy
CPT/HCPCS: 36415; 51702; 80048; 83735; 84100; 85025; 96360; 96361; A9270-GY; G0378; G0379; J7030

== ENCOUNTER 2019-09-07 11:42 | Inpatient (IN) | payer MEDICARE, BC ==
--- NOTE | 2019-09-07 11:43 | EDM.PDOC ---
ED HPI GENERAL MEDICAL PROBLEM - General Chief Complaint: Respiratory Problem Stated Complaint: HYPOXIA Time Seen by Provider: 09/07/19 11:25 Source of Information: Reports: Patient, Family, Provider History Limitations: Reports: Other - History of Present Illness INITIAL COMMENTS - FREE TEXT/NARRATIVE: This 79 yo male patient was sent to the ED from the [facility] (Dr. Gallegos) due to hypoxia and altered sensorium. The patient's family reports the patient started to have a cough 4 days ago and has gotten worse. Dr. Gallegos reported the patient had an oxygen saturation of 84% on room air. The patient also seems to be less active than normal. The patient was recently in the hospital in [place] for scheduling of treatment for a cancerous lesion on his back. The patient came to the ED in an electric wheelchair with a nasal canula on at 2 lpm. The patient's initial oxygen saturation was 94% while on oxygen. Onset Date: 09/03/19 Duration: Constant, Getting Worse Location: Reports: Chest Quality: Reports: Other Severity: Moderate Improves with: Reports: None Worsens with: Reports: None Context: Reports: Other Associated Symptoms: Reports: Cough, Shortness of Breath Treatments FACILITIES ENGINEER: Reports: Oxygen - Related Data Allergies Allergy/AdvReac Type Severity Reaction Status Date / Time ciprofloxacin [From Cipro] Allergy Mouth Sores Verified 09/07/19 11:29 nitrofurantoin Allergy Cannot Verified 09/07/19 11:29 [From Macrobid] Remember Home Meds: Home Meds Ascorbic Acid 1,000 mg PO .NOON 04/09/14 [History] Baclofen 20 mg PO BID 04/09/14 [History] Calcium Carb/Vitamin D3/Vit K1 [Calcium + D Soft Chewable Tab] 1 tab PO TIDAC [History] Donepezil HCl 10 mg PO BEDTIME 04/09/14 [History] Ipratropium [Atrovent 0.03% Nasal S[place]] 2 sprays NASBOTH BID PRN 04/09/14 [ History] Leuprolide [Lupron Depot 4-Month] 30 mg IM .[id number] 04/09/14 [History] Multivitamin [Multi-Vitamin Daily] 1 tab PO DAILY 04/09/14 [History] [place]-3/DHA/Epa/Fish Oil [Fish Oil 1,000 mg Softgel] 600 mg PO BID 04/09/14 [ History] Primidone 50 mg PO .SUPPER 04/09/14 [History] Valproic Acid [Depakene] 250 mg PO .MORNING,NOON 04/09/14 [History] Aspirin [Adult Low Dose Aspirin EC] 81 mg PO DAILY 07/03/16 [History] Cyanocobalamin (Vitamin B-12) [Vitamin B-12] 1,000 mcg PO DAILY 07/03/16 [ History] Omeprazole 20 mg PO DAILY 07/03/16 [History] Propranolol HCl 80 mg PO BID 07/03/16 [History] Lactobacillus Rhamnosus [id number] [Probiotic Digestive Care] 1 cap PO DAILY [History] Cranberry Fruit Concentrate [Cranberry] 900 mg PO DAILY 03/01/19 [History] Valproic Acid 500 mg PO BEDTIME 03/01/19 [History] Cannabidiol (Cbd) Extract [CBD Oil] 1 drop TOP BID 06/16/19 [History] Ergocalciferol (Vitamin D2) [Vitamin D2] 50,000 unit PO .TWICE A WEEK 06/16/19 [ History] Oxybutynin 5 mg PO BEDTIME 06/16/19 [History] guaiFENesin [Robitussin] 100 mg PO Q6H PRN 06/16/19 [History] Cider Vinegar [Apple Cider Vinegar] 600 mg PO DAILY 06/17/19 [History] Guaifen/Dextromethorphan/PE [Mucinex Fast-Max Congest-Cough] 20 ml PO Q4H PRN [History] Lidocaine 5% [Lidoderm 5%] 700 mg TOP Q24H #30 patch 06/17/19 [Rx] Enzalutamide [Xtandi] 160 mg PO DAILY 09/07/19 [History] Ondansetron [Zofran ODT] 4 mg PO Q8H PRN 09/07/19 [History] Past Medical History - Past Health History Medical/Surgical History: Denies Medical/Surgical History HEENT History: Reports: Cataract, Impaired Vision Cardiovascular History: Reports: Hypertension Gastrointestinal History: Reports: Celiac Disease Genitourinary History: Reports: Retention, Urinary, UTI, Recurrent Other Genitourinary History: Sheffield cath Musculoskeletal History: Reports: Connective Tissue Disease, Osteoporosis, Other (See Below) Other Musculoskeletal History: Multiple Sclerosis, utilizes an electric scooter Neurological History: Reports: MS Other Neuro History: Seizures 2008 Oncologic (Cancer) History: Reports: Prostate Other Dermatologic History: none - Infectious Disease History Infectious Disease History: Reports: Chicken Pox - Past Surgical History HEENT Surgical History: Reports: None Cardiovascular Surgical History: Reports: None GI Surgical History: Reports: Hernia Repair/Other Male Surgical History: Reports: None Neurological Surgical History: Reports: None Musculoskeletal Surgical History: Reports: None Oncologic Surgical History: Reports: None Social & Family History - Family History Family Medical History: Noncontributory HEENT: Reports: Cataract - Caffeine Use Caffeine Use: Reports: None - Living Situation & Occupation Living situation: Reports: , with Family Occupation: Disabled ED ROS GENERAL - Review of Systems Review Of Systems: Comprehensive ROS is negative, except as noted in HPI. ED EXAM, GENERAL - Physical Exam Exam: See Below Exam Limited By: Altered Mental Status (slow in responding) General Appearance: Alert, WD/WN, Moderate Distress Eye Exam: Bilateral Eye: EOMI, Normal Inspection, PERRL Ears: Normal External Exam Respiratory/Chest: No Respiratory Distress, Lungs Clear, Normal Breath Sounds, No Accessory Muscle Use, Chest Non-Tender Cardiovascular: Normal Peripheral Pulses, Regular Rate, Rhythm, No Edema, No Gallop, No JVD, No Murmur, No Rub GI/Abdominal: Normal Bowel Sounds, Soft, Non-Tender, No Organomegaly, No Distention, No Abnormal Bruit, No Mass (Male) Exam: Deferred Rectal (Males) Exam: Deferred Back Exam: Normal Inspection, Full Range of Motion, NT Extremities: Normal Inspection, Non-Tender, No Pedal Edema, Normal Capillary Refill Neurological: Alert, Oriented Psychiatric: Normal Affect, Normal Mood Skin Exam: Warm, Dry, Intact, Normal Color, No Rash Lymphatic: No Adenopathy Course - Vital Signs Last Recorded V/S: Last Vital Signs Temp 36.6 C 09/07/19 12:33 Pulse 77 09/07/19 11:21 Resp 24 H 09/07/19 11:21 BP 131/75 09/07/19 11:21 Pulse Ox 94 L 09/07/19 11:21 - Orders/Labs/Meds Orders: Active Orders 24 hr Category Date Time Status EKG Documentation Completion [RC] URGENT Care 09/07/19 11:14 Active CULTURE BLOOD [BC] Stat Lab 09/07/19 11:30 Results CULTURE BLOOD [BC] Stat Lab 09/07/19 11:38 Received CULTURE URINE [RM] Urgent Lab 09/07/19 13:37 Received UA W/MICROSCOPIC [URIN] Urgent Lab 09/07/19 13:37 Results Azithromycin [Zithromax] 500 mg Med 09/07/19 14:06 Ordered Sodium Chloride 0.9% [Normal Saline (AdvBag)] 250 ml IV ONETIME cefTRIAXone [Rocephin] 1 gm Med 09/07/19 14:06 Ordered Sodium Chloride 0.9% [Normal Saline] 50 ml IV ONETIME Blood Culture x2 Reflex Set [OM.PC] Stat Oth 09/07/19 11:19 Ordered Labs: Laboratory Tests 09/07/19 09/07/19 09/07/19 Range/Units 11:38 11:38 11:38 WBC 7.9 (5.0-10.0) 10^3/uL RBC 5.17 (4.6-6.2) 10^6/uL Hgb 17.0 D (14.0-18.0) g/dL Hct 48.6 (40.0-54.0) % MCV 94.0 (80-100) fL MCH 32.9 (27.0-34.0) pg MCHC 35.0 (33.0-35.0) g/dL Plt Count 168 (150-450) 10^3/uL Neut % (Auto) 78.6 H (42.2-75.2) % Lymph % (Auto) 10.3 L (20.5-50.1) % [place] % (Auto) 10.9 H (2-8) % Eos % (Auto) 0.1 L (1.0-3.0) % Baso % (Auto) 0.1 (0.0-1.0) % Sodium 125 L (135-145) mmol/L Potassium 4.6 (3.6-5.0) mmol/L Chloride 89 L (101-111) mmol/L Carbon Dioxide 27.0 (21.0-31.0) mmol/L Anion Gap 13.6 BUN 14 (7-18) mg/dL Creatinine 0.6 (0.6-1.3) mg/dL Est Cr Clr Drug Dosing 97.65 mL/min Estimated GFR (MDRD) > 60 BUN/Creatinine Ratio 23.33 Glucose 95 (74-105) mg/dL Lactic Acid 1.4 (0.5-2.0) mmol/L Calcium 8.2 L (8.4-10.2) mg/dl Total Bilirubin 0.7 (0.2-1.0) mg/dL AST 26 (10-42) IU/L ALT 14 (10-60) IU/L Alkaline Phosphatase 73 (42-121) IU/L Troponin I < 0.02 (0.00-0.02) ng/ml B-Natriuretic Peptide (0-100) pg/ml Total Protein 7.2 (6.7-8.2) g/dl Albumin 3.3 (3.2-5.5) g/dl Globulin 3.9 Albumin/Globulin Ratio 0.85 Urine Color (YELLOW) Urine Appearance (CLEAR) Urine pH (5.0-9.0) Ur Specific [place] (1.005-1.030) Urine Protein (NEGATIVE) Urine Glucose (UA) (NEGATIVE) Urine Ketones (NEGATIVE) Urine Occult Blood (NEGATIVE) Urine Nitrite (NEGATIVE) Urine Bilirubin (NEGATIVE) Urine Urobilinogen (0.2-1.0) mg/dL Ur Leukocyte Esterase (NEGATIVE) 09/07/19 09/07/19 Range/Units 11:38 13:37 WBC (5.0-10.0) 10^3/uL RBC (4.6-6.2) 10^6/uL Hgb (14.0-18.0) g/dL Hct (40.0-54.0) % MCV (80-100) fL MCH (27.0-34.0) pg MCHC (33.0-35.0) g/dL Plt Count (150-450) 10^3/uL Neut % (Auto) (42.2-75.2) % Lymph % (Auto) (20.5-50.1) % [place] % (Auto) (2-8) % Eos % (Auto) (1.0-3.0) % Baso % (Auto) (0.0-1.0) % Sodium (135-145) mmol/L Potassium (3.6-5.0) mmol/L Chloride (101-111) mmol/L Carbon Dioxide (21.0-31.0) mmol/L Anion Gap BUN (7-18) mg/dL Creatinine (0.6-1.3) mg/dL Est Cr Clr Drug Dosing mL/min Estimated GFR (MDRD) BUN/Creatinine Ratio Glucose (74-105) mg/dL Lactic Acid (0.5-2.0) mmol/L Calcium (8.4-10.2) mg/dl Total Bilirubin (0.2-1.0) mg/dL AST (10-42) IU/L ALT (10-60) IU/L Alkaline Phosphatase (42-121) IU/L Troponin I (0.00-0.02) ng/ml B-Natriuretic Peptide 193 H (0-100) pg/ml Total Protein (6.7-8.2) g/dl Albumin (3.2-5.5) g/dl Globulin Albumin/Globulin Ratio Urine Color Yellow (YELLOW) Urine Appearance Cloudy (CLEAR) Urine pH 8.0 (5.0-9.0) Ur Specific [place] 1.025 (1.005-1.030) Urine Protein >=300 H (NEGATIVE) Urine Glucose (UA) Negative (NEGATIVE) Urine Ketones 40 H (NEGATIVE) Urine Occult Blood Large H (NEGATIVE) Urine Nitrite Positive H (NEGATIVE) Urine Bilirubin Negative (NEGATIVE) Urine Urobilinogen 1.0 (0.2-1.0) mg/dL Ur Leukocyte Esterase Large H (NEGATIVE) Departure - Departure Time of Disposition: 14:08 Disposition: Admitted As Inpatient 67 Condition: Fair Clinical Impression: Pneumonia - Discharge Information Care Plan Goals: Discussed the patient's history, examination, lab, x-ray, EKG and CT results with Dr. Chester. Dr. Chester accepted the patient for continued evaluation and management as an inpatient at [facility] in [place]. Sepsis Event Note - Evaluation Sepsis Screening Result: No Definite Risk - Focused Exam Vital Signs: Vital Signs Temp Pulse Resp BP Pulse Ox 09/07/19 12:33 36.6 C 09/07/19 11:21 38.2 C H 77 24 H 131/75 94 L Date Exam was Performed: 09/07/19 Time Exam was Performed: 14:07 - My Orders Last 24 Hours: My Active Orders 09/07/19 11:14 EKG Documentation Completion [RC] URGENT 09/07/19 11:19 Blood Culture x2 Reflex Set [OM.PC] Stat 09/07/19 11:30 CULTURE BLOOD [BC] Stat 09/07/19 11:38 CULTURE BLOOD [BC] Stat 09/07/19 13:37 CULTURE URINE [RM] Urgent UA W/MICROSCOPIC [URIN] Urgent 09/07/19 14:06 Azithromycin [Zithromax] 500 mg Sodium Chloride 0.9% [Normal Saline (AdvBag)] 250 ml IV ONETIME cefTRIAXone [Rocephin] 1 gm Sodium Chloride 0.9% [Normal Saline] 50 ml IV ONETIME - Assessment/Plan Last 24 Hours: My Active Orders 09/07/19 11:14 EKG Documentation Completion [RC] URGENT 09/07/19 11:19 Blood Culture x2 Reflex Set [OM.PC] Stat 09/07/19 11:30 CULTURE BLOOD [BC] Stat 09/07/19 11:38 CULTURE BLOOD [BC] Stat 09/07/19 13:37 CULTURE URINE [RM] Urgent UA W/MICROSCOPIC [URIN] Urgent 09/07/19 14:06 Azithromycin [Zithromax] 500 mg Sodium Chloride 0.9% [Normal Saline (AdvBag)] 250 ml IV ONETIME cefTRIAXone [Rocephin] 1 gm Sodium Chloride 0.9% [Normal Saline] 50 ml IV ONETIME
[2019-09-07 12:08] LABS: ANION GAP 13.6; CHLORIDE,CL 89 mmol/L (101-111); SODIUM,NA 125 mmol/L (135-145)
--- NOTE | 2019-09-07 12:26 | CR ---
EXAMINATION: Chest 1V Frontal SEX: Male AGE: 79 years CLINICAL HISTORY: 79-year-old male with cough. ("Difficult exam" due to patient's condition) Upright AP chest is abnormal. Asymmetric dense new consolidation left lung base since 28 December 2011 comparison exam i.e. probable effusion with underlying infiltrate or atelectasis silhouetting the left heart border and ipsilateral hemidiaphragm). Clinical aspiration? Trauma? Normal cardiac silhouette without new cephalization of vascular flow alveolar edema or dependent pleural effusion on the right. Patient rotated distorting the cardiac silhouette and bronchovascular markings but no lung mass or other focal lobar consolidation. No pneumothorax. CONCLUSION: Abnormal left lung base.
--- NOTE | 2019-09-07 13:43 | CT ---
EXAMINATION: Chest wo Cont SEX: Male AGE: 79 years CLINICAL HISTORY: 79-year-old male with multiple sclerosis, prostate cancer and short of breath (new consolidation left lung base noted on x-ray). Scan technique: Volume acquisition of data emergency unenhanced CT scan of the chest (bony thorax, lungs and mediastinum) obtained with the patient lying supine on the Siemens multislice scanner [place], [place]. All data archived in the PACS system for storage, reformatting axial/sagittal/coronal planes and study. Comparison CT exam December 2018. Interpretation: Abnormal. 1. Several "ivory" (osteoblastic prostate metastasis?) upper mid/lower thoracic spine mostly new since 19 December 2018 exam. Insufficiency fractures (50%) of at least 2 vertebral bodies, mid and lower-mid thoracic spine. 2. *Dependent subpulmonic pleural effusions left base posteriorly with underlying left lower lobe infiltrate and/or atelectasis. 3. Borderline cardiomegaly with generalized mild pulmonary vascular congestion. No alveolar edema or dependent effusion accumulated within the contralateral right lung base. 4. Dorsolumbar scoliosis and pronounced ectasia normal caliber thoracic aorta. No pericardial effusions. 5. Azygous lymph nodes. No other hilar or mediastinal lymphadenopathy. No parenchymal lung nodule or mass lesion. 6. Contracted gallbladder (RUQ), unenhanced liver, stomach, spleen, and adrenal glands unremarkable. CONCLUSION: New abnormalities (probable metastatic disease) thoracic and upper lumbar spine. Generalized pulmonary vascular congestion and dependent new left pleural effusion with underlying infiltrate/atelectasis.
[2019-09-07] MEDS ORDERED: cefTRIAXone 1 GM in Sodium Chloride 0.9% 50 ML IV ONE (14:06)
[2019-09-07] MEDS ORDERED: Azithromycin 500 MG in Sodium Chloride 0.9% 250 ML IV ONE (14:06)
[2019-09-07] MEDS ORDERED: Magnesium Hydroxide 400 MG/5 ML Susp 30 ML Cup PO PRN (15:20)
[2019-09-07] MEDS ORDERED: Ondansetron 4 MG/2 ML SDV IVPUSH PRN (15:20)
[2019-09-07] MEDS ORDERED: Docusate Sodium 100 MG Cap PO PRN (15:20)
[2019-09-07] MEDS ORDERED: Albuterol/Ipratropium 3.0-0.5 MG/3 ML Neb Soln NEB PRN (15:20)
[2019-09-07] MEDS ORDERED: Sodium Chloride 0.9% 1,000 ML IV SCH ×2 (15:30→20:45)
--- NOTE | 2019-09-07 15:31 | PCM.PN ---
- General Info Date of Service: 09/07/19 Admission Dx/Problem (Free Text): Mr. Benton is a 79-year-old male with past medical history significant for seizure disorder, prostate cancer currently on Lupron with worsening PSA, multiple sclerosis with lower extremity weakness and neurogenic bladder, hypertension, celiac disease, memory impairment was transferred to the hospital from outpatient appointment for further management of generalized weakness and back pain. Patient has been unable to stand since September of this year. Patient also had chronic indwelling Sheffield placed around the same time. said that approximately 4 weeks ago, she noticed foul-smelling urine. Urine cultures were obtained last week after patient developed an episode of back pain and he was positive for pseudomonas aeruginosa and Providencia rettgeri. Patient was treated with Bactrim for the past week, however back pain continued to be an issue. He presented today to outpatient appointment with primary care [employer]. Given continued back pain, and concern for UTI with resistant bacteria, patient was transferred here for further care. Of note, lab work today showed negative white blood cell count, but did show slight hyponatremia at 128. Upon interview , patient and family reported that back pain is mainly mechanical and related to position. Patient describes it as a band on the lower back, alleviated with laying down, exacerbated by sitting up from his chair. Patient denies any fevers, chills, any other systemic symptoms. Family said that his allergy to ciprofloxacin is diarrhea. - Patient Data Vitals - Most Recent: Last Vital Signs Temp 97.9 F 09/07/19 12:33 Pulse 77 09/07/19 11:21 Resp 24 H 09/07/19 11:21 BP 131/75 09/07/19 11:21 Pulse Ox 94 L 09/07/19 11:21 Weight - Most Recent: 139 lb 4.8 oz Lab Results Last 24 Hours: Laboratory Results - last 24 hr 09/07/19 09/07/19 09/07/19 Range/Units 11:38 11:38 11:38 WBC 7.9 (5.0-10.0) 10^3/uL RBC 5.17 (4.6-6.2) 10^6/uL Hgb 17.0 D (14.0-18.0) g/dL Hct 48.6 (40.0-54.0) % MCV 94.0 (80-100) fL MCH 32.9 (27.0-34.0) pg MCHC 35.0 (33.0-35.0) g/dL Plt Count 168 (150-450) 10^3/uL Neut % (Auto) 78.6 H (42.2-75.2) % Lymph % (Auto) 10.3 L (20.5-50.1) % [place] % (Auto) 10.9 H (2-8) % Eos % (Auto) 0.1 L (1.0-3.0) % Baso % (Auto) 0.1 (0.0-1.0) % Sodium 125 L (135-145) mmol/L Potassium 4.6 (3.6-5.0) mmol/L Chloride 89 L (101-111) mmol/L Carbon Dioxide 27.0 (21.0-31.0) mmol/L Anion Gap 13.6 BUN 14 (7-18) mg/dL Creatinine 0.6 (0.6-1.3) mg/dL Est Cr Clr Drug Dosing 97.65 mL/min Estimated GFR (MDRD) > 60 BUN/Creatinine Ratio 23.33 Glucose 95 (74-105) mg/dL Lactic Acid 1.4 (0.5-2.0) mmol/L Calcium 8.2 L (8.4-10.2) mg/dl Total Bilirubin 0.7 (0.2-1.0) mg/dL AST 26 (10-42) IU/L ALT 14 (10-60) IU/L Alkaline Phosphatase 73 (42-121) IU/L Troponin I < 0.02 (0.00-0.02) ng/ml B-Natriuretic Peptide (0-100) pg/ml Total Protein 7.2 (6.7-8.2) g/dl Albumin 3.3 (3.2-5.5) g/dl Globulin 3.9 Albumin/Globulin Ratio 0.85 Urine Color (YELLOW) Urine Appearance (CLEAR) Urine pH (5.0-9.0) Ur Specific [place] (1.005-1.030) Urine Protein (NEGATIVE) Urine Glucose (UA) (NEGATIVE) Urine Ketones (NEGATIVE) Urine Occult Blood (NEGATIVE) Urine Nitrite (NEGATIVE) Urine Bilirubin (NEGATIVE) Urine Urobilinogen (0.2-1.0) mg/dL Ur Leukocyte Esterase (NEGATIVE) Urine RBC /HPF Urine WBC (0-5/HPF) /HPF Ur Epithelial Cells (NOT SEEN) /HPF Amorphous Sediment (NOT SEEN) /HPF Urine Bacteria (0-FEW/HPF) /HPF Urine Mucus (NOT SEEN) /LPF 09/07/19 09/07/19 Range/Units 11:38 13:37 WBC (5.0-10.0) 10^3/uL RBC (4.6-6.2) 10^6/uL Hgb (14.0-18.0) g/dL Hct (40.0-54.0) % MCV (80-100) fL MCH (27.0-34.0) pg MCHC (33.0-35.0) g/dL Plt Count (150-450) 10^3/uL Neut % (Auto) (42.2-75.2) % Lymph % (Auto) (20.5-50.1) % [place] % (Auto) (2-8) % Eos % (Auto) (1.0-3.0) % Baso % (Auto) (0.0-1.0) % Sodium (135-145) mmol/L Potassium (3.6-5.0) mmol/L Chloride (101-111) mmol/L Carbon Dioxide (21.0-31.0) mmol/L Anion Gap BUN (7-18) mg/dL Creatinine (0.6-1.3) mg/dL Est Cr Clr Drug Dosing mL/min Estimated GFR (MDRD) BUN/Creatinine Ratio Glucose (74-105) mg/dL Lactic Acid (0.5-2.0) mmol/L Calcium (8.4-10.2) mg/dl Total Bilirubin (0.2-1.0) mg/dL AST (10-42) IU/L ALT (10-60) IU/L Alkaline Phosphatase (42-121) IU/L Troponin I (0.00-0.02) ng/ml B-Natriuretic Peptide 193 H (0-100) pg/ml Total Protein (6.7-8.2) g/dl Albumin (3.2-5.5) g/dl Globulin Albumin/Globulin Ratio Urine Color Yellow (YELLOW) Urine Appearance Cloudy (CLEAR) Urine pH 8.0 (5.0-9.0) Ur Specific [place] 1.025 (1.005-1.030) Urine Protein >=300 H (NEGATIVE) Urine Glucose (UA) Negative (NEGATIVE) Urine Ketones 40 H (NEGATIVE) Urine Occult Blood Large H (NEGATIVE) Urine Nitrite Positive H (NEGATIVE) Urine Bilirubin Negative (NEGATIVE) Urine Urobilinogen 1.0 (0.2-1.0) mg/dL Ur Leukocyte Esterase Large H (NEGATIVE) Urine RBC Packed H /HPF Urine WBC Packed H (0-5/HPF) /HPF Ur Epithelial Cells Not seen (NOT SEEN) /HPF Amorphous Sediment Many (NOT SEEN) /HPF Urine Bacteria Moderate H (0-FEW/HPF) /HPF Urine Mucus Moderate H (NOT SEEN) /LPF Michael Results Last 24 Hours: Microbiology 09/07/19 11:21 Influenza Type A Antigen Screen - Final Nasal, Unspecified NEGATIVE INFLUENZA A VIRUS AG REFERENCE RANGE: NEGATIVE Influenza Type B Antigen Screen - Final NEGATIVE INFLUENZA B VIRUS AG REFERENCE RANGE: NEGATIVE 09/07/19 11:30 Anaerobic Blood Culture - Final Blood - Venous - Lab Draw Med Orders - Current: Current Medications Acetaminophen (Tylenol) 650 mg PO Q4H PRN PRN Reason: Pain (Mild 1-3)/fever Albuterol/Ipratropium (Duoneb 3.0-0.5 Mg/3 Ml) 3 ml NEB Q4H PRN PRN Reason: shortness of breath/wheezing Aspirin (Halfprin) 81 mg PO DAILY ALEXY Non-Formulary Medication (Baclofen [Baclofen]) 20 mg PO BID ALEXY Non-Formulary Medication (Calcium Carb/Vitamin D3/Vit K1 [Calcium + D Soft Chewable Tab]) 1 tab PO TIDAC ALEXY Non-Formulary Medication (Cyanocobalamin (Vitamin B-12) [Vitamin B-12]) 1,000 mcg PO DAILY ALEXY Discontinued Medications Azithromycin 500 mg/ Sodium (Chloride) 250 mls @ 250 mls/hr IV ONETIME ONE Stop: 09/07/19 15:05 Last Admin: 09/07/19 14:45 Dose: 250 mls/hr Ceftriaxone Sodium 1 gm/ (Sodium Chloride) 50 mls @ 100 mls/hr IV ONETIME ONE Stop: 09/07/19 14:35 Last Admin: 09/07/19 14:22 Dose: 100 mls/hr Sepsis Event Note - Evaluation Sepsis Screening Result: No Definite Risk - Focused Exam Vital Signs: Vital Signs Temp Pulse Resp BP Pulse Ox 09/07/19 12:33 97.9 F 09/07/19 11:21 100.8 F H 77 24 H 131/75 94 L Date Exam was Performed: 09/07/19 Time Exam was Performed: 15:32 - My Orders Last 24 Hours: My Active Orders 09/07/19 15:20 Height and Weight [RC] DAILY Oxygen Therapy [RC] PRN Up With Assistance [RC] ASDIRECTED VTE/DVT Education [RC] PER UNIT ROUTINE Vital Signs [RC] Q4H OT Evaluation and Treatment [CONS] Routine PT Evaluation and Treatment [CONS] Routine Respiratory Care Assess and Treatment [CONS] Routine CULTURE SPUTUM + SMEAR [RM] Stat GRAM STAIN [RM] Routine MAGNESIUM [CHEM] Routine PHOSPHORUS [CHEM] Routine Acetaminophen [Tylenol] 650 mg PO Q4H PRN Albuterol/Ipratropium [DuoNeb 3.0-0.5 MG/3 ML] 3 ml NEB Q4H PRN Docusate Sodium [Colace] 100 mg PO BID PRN Magnesium Hydroxide [Milk of Magnesia] 30 ml PO Q12H PRN Ondansetron [Zofran] 4 mg IVPUSH Q6H PRN Resuscitation Status Routine 09/07/19 15:21 Intake and Output [RC] QSHIFT Notify Provider Vital Signs [RC] ASDIRECTED Pulse Oximetry [RC] PRN 09/07/19 15:23 RT Aerosol Therapy [RC] ASDIRECTED 09/07/19 15:26 Guaifen/Dextromethorphan/PE [Mucinex Fast-Max Congest-Cough] 20 ml PO BID PRN 09/07/19 15:30 Primidone [Mysoline] 50 mg PO .SUPPER Sodium Chloride 0.9% [Normal Saline] 1,000 ml IV ASDIRECTED Valproic Acid [Depakene] 250 mg PO .MORNING,NOON 09/07/19 16:00 Calcium Carb/Vitamin D3/Vit K1 [Calcium + D Soft Chewable Tab] 1 tab PO TIDAC 09/07/19 21:00 Baclofen [Baclofen] 20 mg PO BID Donepezil [Aricept] 10 mg PO BEDTIME Oxybutynin 5 mg PO BEDTIME Propranolol HCl [Propranolol HCl] 80 mg PO BID Valproic Acid [Depakene] 500 mg PO BEDTIME 09/07/19 Dinner Regular Diet [DIET] 09/08/19 07:00 BASIC METABOLIC PANEL,BMP [CHEM] DAILY CBC W/O DIFF,HEMOGRAM [HEME] DAILY 09/08/19 09:00 Aspirin [Halfprin] 81 mg PO DAILY Cyanocobalamin (Vitamin B-12) [Vitamin B-12] 1,000 mcg PO DAILY Enoxaparin [Lovenox] 40 mg SUBCUT DAILY Enzalutamide [Xtandi] 160 mg PO DAILY Omeprazole 20 mg PO DAILY
--- NOTE | 2019-09-07 15:35 | PCM.HP ---
H&P History of Present Illness - General Date of Service: 09/07/19 Admit Problem/Dx: Admission Diagnosis/Problem Admission Diagnosis/Problem Pneumonia Source of Information: EMS Notes Reviewed, Family History Limitations: Reports: No Limitations, Altered Mental Status - History of Present Illness Initial Comments - Free Text/Narative: Mr. Benton is a 79-year-old male with past medical history significant for seizure disorder, prostate cancer ith metastatics to the thoracic and lumbar vertebra and lungs, currently on Lupron, he will be starting chemotherapy next week at [facility], multiple sclerosis with lower extremity weakness and neurogenic bladder with chronic [place] in place, hypertension, celiac disease, memory impairment. He was transferred to the ED from [facility] for further evaluation of chronic x 4 days, SOB, hypoxia, generalized weakness. Patient is a poor historian due to patient factors. History from spouse by bedside and from EMR. As per spouse patient has been having wet cough for the past 4 days and is gotten increasingly worse. She also reports patient appetite has decreased significantly. As a result he has become increasingly weak. He had a low-grade fever today in the clinic. Patient has no recent travel or sick contacts. He has no nausea, vomiting, diarrhea. Today under clinic as per provider patient was hypoxic with saturation around 84% on room air. He was subsequently sent to the ED for further evaluation. In the ED his saturation was 94% on 2 L of oxygen. Vitals unremarkable. CT chest showed metastasis to lower thoracic and upper lumbar spine, left lower lung infiltrate/atelectasis. Significant lab WBC within normal limits. UA was positive for nitrites. BNP 93 , sodium 125. Patient was started on IV antibiotics. He was admitted for further management. Of note the patient was recently in the hospital in [place] for scheduling of treatment for a cancerous lesion on his back. Onset of Symptoms: Reports: Gradual Duration of Symptoms: Reports: Day(s): Location: Reports: Generalized Quality: Reports: Ache Severity: Moderate Improves with: Reports: None Worsens with: Reports: None Associated Symptoms: Reports: Fever/Chills, Loss of Appetite, Malaise, Weakness - Related Data Allergies/Adverse Reactions: Allergies Allergy/AdvReac Type Severity Reaction Status Date / Time ciprofloxacin [From Cipro] Allergy Mouth Sores Verified 09/07/19 11:29 nitrofurantoin Allergy Cannot Verified 09/07/19 11:29 [From Macrobid] Remember Home Medications: Home Meds Ascorbic Acid 1,000 mg PO .NOON 04/09/14 [History] Baclofen 20 mg PO BID 04/09/14 [History] Calcium Carb/Vitamin D3/Vit K1 [Calcium + D Soft Chewable Tab] 1 tab PO TIDAC [History] Donepezil HCl 10 mg PO BEDTIME 04/09/14 [History] Ipratropium [Atrovent 0.03% Nasal [place]] 2 sprays NASBOTH QID PRN 04/09/14 [ History] Leuprolide [Lupron [place] 4-Month] 30 mg IM .[id number] 04/09/14 [History] Multivitamin [Multi-Vitamin Daily] 1 tab PO DAILY 04/09/14 [History] [place]-3/DHA/Epa/Fish Oil [Fish Oil 1,000 mg Softgel] 600 mg PO BID 04/09/14 [ History] Primidone 50 mg PO .SUPPER 04/09/14 [History] Valproic Acid [Depakene] 250 mg PO .MORNING,NOON 04/09/14 [History] Aspirin [Adult Low Dose Aspirin EC] 81 mg PO DAILY 07/03/16 [History] Cyanocobalamin (Vitamin B-12) [Vitamin B-12] 1,000 mcg PO DAILY 07/03/16 [ History] Omeprazole 20 mg PO DAILY 07/03/16 [History] Lactobacillus Rhamnosus [id number] [Probiotic Digestive Care] 1 cap PO DAILY [History] Cranberry Fruit Concentrate [Cranberry] 900 mg PO DAILY 03/01/19 [History] Valproic Acid 500 mg PO BEDTIME 03/01/19 [History] Cannabidiol (Cbd) Extract [CBD Oil] 1 drop TOP BID 06/16/19 [History] Ergocalciferol (Vitamin D2) [Vitamin D2] 50,000 unit PO .TWICE A WEEK 06/16/19 [ History] Oxybutynin 5 mg PO BEDTIME 06/16/19 [History] guaiFENesin [Robitussin] 100 mg PO Q6H PRN 06/16/19 [History] Cider Vinegar [Apple Cider Vinegar] 600 mg PO DAILY 06/17/19 [History] Guaifen/Dextromethorphan/PE [Mucinex Fast-Max Congest-Cough] 20 ml PO BID PRN [History] Lidocaine 5% [Lidoderm 5%] 700 mg TOP Q24H #30 patch 06/17/19 [Rx] Enzalutamide [Xtandi] 160 mg PO DAILY 09/07/19 [History] Ondansetron [Zofran ODT] 4 mg PO Q8H PRN 09/07/19 [History] Propranolol HCl 80 mg PO BID 09/07/19 [History] Past Medical History - Past Health History Medical/Surgical History: Denies Medical/Surgical History HEENT History: Reports: Cataract, Impaired Vision Cardiovascular History: Reports: Hypertension Respiratory History: Reports: None Gastrointestinal History: Reports: Celiac Disease Genitourinary History: Reports: Retention, Urinary, UTI, Recurrent Other Genitourinary History: Sheffield cath Musculoskeletal History: Reports: Connective Tissue Disease, Osteoporosis, Other (See Below) Other Musculoskeletal History: Multiple Sclerosis, utilizes an electric scooter Neurological History: Reports: MS Other Neuro History: Seizures 2008 Psychiatric History: Reports: None Endocrine/Metabolic History: Reports: None Hematologic History: Reports: None Immunologic History: Reports: None Oncologic (Cancer) History: Reports: Prostate Dermatologic History: Reports: None Other Dermatologic History: none - Infectious Disease History Infectious Disease History: Reports: Chicken Pox - Past Surgical History HEENT Surgical History: Reports: None Cardiovascular Surgical History: Reports: None GI Surgical History: Reports: Hernia Repair/Other Male Surgical History: Reports: None Neurological Surgical History: Reports: None Musculoskeletal Surgical History: Reports: None Oncologic Surgical History: Reports: None Social & Family History - Family History Family Medical History: Noncontributory HEENT: Reports: Cataract - Tobacco Use Smoking Status *Q: Never Smoker Second Hand Smoke Exposure: No - Caffeine Use Caffeine Use: Reports: None - Recreational Drug Use Recreational Drug Use: No - Living Situation & Occupation Living situation: Reports: , with Family Occupation: Disabled H&P Review of Systems - Review of Systems: Review Of Systems: See Below General: Reports: Fever HEENT: Reports: No Symptoms Pulmonary: Reports: Shortness of Breath, Cough Cardiovascular: Reports: No Symptoms Gastrointestinal: Reports: No Symptoms Genitourinary: Reports: No Symptoms Musculoskeletal: Reports: No Symptoms Skin: Reports: No Symptoms Psychiatric: Reports: No Symptoms Neurological: Reports: No Symptoms Hematologic/Lymphatic: Reports: No Symptoms Immunologic: Reports: No Symptoms (Apperas lethargic) Exam - Exam Exam: See Below - Vital Signs Vital Signs: Last Vital Signs Temp 97.9 F 09/07/19 12:33 Pulse 77 09/07/19 11:21 Resp 24 H 09/07/19 11:21 BP 131/75 09/07/19 11:21 Pulse Ox 94 L 09/07/19 11:21 Weight: 139 lb 4.8 oz - Exam Quality Assessment: Supplemental Oxygen, DVT Prophylaxis, Other (lethargic) General: Alert, Oriented, 4 HEENT: PERRLA, Hearing Intact, Mucosa Moist & [place], Nares Patent, Normal Nasal Septum, Posterior Pharynx Clear, Conjunctiva Clear, EOMI, EACs Clear, TMs Clear Neck: Supple, Trachea Midline, 2 Lungs: Clear to Auscultation, Normal Respiratory Effort Cardiovascular: Regular Rate, Regular Rhythm GI/Abdominal Exam: Normal Bowel Sounds, Soft, Non-Tender, No Organomegaly, No Distention, No Abnormal Bruit, No Mass, Pelvis Stable (Male) Exam: No Hernia, Normal Inspection, Normal Prostate, Circumcised Rectal (Males) Exam: Normal Exam, Normal Rectal Tone, Prostate Normal Back Exam: Normal Inspection, Full Range of Motion, NT Extremities: Other (weak) Skin: Warm, Dry, Intact Neurological: Cranial Nerves Intact, Reflexes Equal Bilateral Neuro Extensive - Mental Status: Alert, Oriented x3, Normal Mood/Affect, Normal Cognition Neuro Extensive - Motor, Sensory, Reflexes: CN II-XII Intact, Normal Gait, Normal Reflexes - Patient Data Lab Results Last 24 hrs: Laboratory Results - last 24 hr 09/07/19 09/07/19 09/07/19 Range/Units 11:38 11:38 11:38 WBC 7.9 (5.0-10.0) 10^3/uL RBC 5.17 (4.6-6.2) 10^6/uL Hgb 17.0 D (14.0-18.0) g/dL Hct 48.6 (40.0-54.0) % MCV 94.0 (80-100) fL MCH 32.9 (27.0-34.0) pg MCHC 35.0 (33.0-35.0) g/dL Plt Count 168 (150-450) 10^3/uL Neut % (Auto) 78.6 H (42.2-75.2) % Lymph % (Auto) 10.3 L (20.5-50.1) % [place] % (Auto) 10.9 H (2-8) % Eos % (Auto) 0.1 L (1.0-3.0) % Baso % (Auto) 0.1 (0.0-1.0) % Sodium 125 L (135-145) mmol/L Potassium 4.6 (3.6-5.0) mmol/L Chloride 89 L (101-111) mmol/L Carbon Dioxide 27.0 (21.0-31.0) mmol/L Anion Gap 13.6 BUN 14 (7-18) mg/dL Creatinine 0.6 (0.6-1.3) mg/dL Est Cr Clr Drug Dosing 97.65 mL/min Estimated GFR (MDRD) > 60 BUN/Creatinine Ratio 23.33 Glucose 95 (74-105) mg/dL Lactic Acid 1.4 (0.5-2.0) mmol/L Calcium 8.2 L (8.4-10.2) mg/dl Total Bilirubin 0.7 (0.2-1.0) mg/dL AST 26 (10-42) IU/L ALT 14 (10-60) IU/L Alkaline Phosphatase 73 (42-121) IU/L Troponin I < 0.02 (0.00-0.02) ng/ml B-Natriuretic Peptide (0-100) pg/ml Total Protein 7.2 (6.7-8.2) g/dl Albumin 3.3 (3.2-5.5) g/dl Globulin 3.9 Albumin/Globulin Ratio 0.85 Urine Color (YELLOW) Urine Appearance (CLEAR) Urine pH (5.0-9.0) Ur Specific [place] (1.005-1.030) Urine Protein (NEGATIVE) Urine Glucose (UA) (NEGATIVE) Urine Ketones (NEGATIVE) Urine Occult Blood (NEGATIVE) Urine Nitrite (NEGATIVE) Urine Bilirubin (NEGATIVE) Urine Urobilinogen (0.2-1.0) mg/dL Ur Leukocyte Esterase (NEGATIVE) Urine RBC /HPF Urine WBC (0-5/HPF) /HPF Ur Epithelial Cells (NOT SEEN) /HPF Amorphous Sediment (NOT SEEN) /HPF Urine Bacteria (0-FEW/HPF) /HPF Urine Mucus (NOT SEEN) /LPF 09/07/19 09/07/19 Range/Units 11:38 13:37 WBC (5.0-10.0) 10^3/uL RBC (4.6-6.2) 10^6/uL Hgb (14.0-18.0) g/dL Hct (40.0-54.0) % MCV (80-100) fL MCH (27.0-34.0) pg MCHC (33.0-35.0) g/dL Plt Count (150-450) 10^3/uL Neut % (Auto) (42.2-75.2) % Lymph % (Auto) (20.5-50.1) % [place] % (Auto) (2-8) % Eos % (Auto) (1.0-3.0) % Baso % (Auto) (0.0-1.0) % Sodium (135-145) mmol/L Potassium (3.6-5.0) mmol/L Chloride (101-111) mmol/L Carbon Dioxide (21.0-31.0) mmol/L Anion Gap BUN (7-18) mg/dL Creatinine (0.6-1.3) mg/dL Est Cr Clr Drug Dosing mL/min Estimated GFR (MDRD) BUN/Creatinine Ratio Glucose (74-105) mg/dL Lactic Acid (0.5-2.0) mmol/L Calcium (8.4-10.2) mg/dl Total Bilirubin (0.2-1.0) mg/dL AST (10-42) IU/L ALT (10-60) IU/L Alkaline Phosphatase (42-121) IU/L Troponin I (0.00-0.02) ng/ml B-Natriuretic Peptide 193 H (0-100) pg/ml Total Protein (6.7-8.2) g/dl Albumin (3.2-5.5) g/dl Globulin Albumin/Globulin Ratio Urine Color Yellow (YELLOW) Urine Appearance Cloudy (CLEAR) Urine pH 8.0 (5.0-9.0) Ur Specific [place] 1.025 (1.005-1.030) Urine Protein >=300 H (NEGATIVE) Urine Glucose (UA) Negative (NEGATIVE) Urine Ketones 40 H (NEGATIVE) Urine Occult Blood Large H (NEGATIVE) Urine Nitrite Positive H (NEGATIVE) Urine Bilirubin Negative (NEGATIVE) Urine Urobilinogen 1.0 (0.2-1.0) mg/dL Ur Leukocyte Esterase Large H (NEGATIVE) Urine RBC Packed H /HPF Urine WBC Packed H (0-5/HPF) /HPF Ur Epithelial Cells Not seen (NOT SEEN) /HPF Amorphous Sediment Many (NOT SEEN) /HPF Urine Bacteria Moderate H (0-FEW/HPF) /HPF Urine Mucus Moderate H (NOT SEEN) /LPF Result Diagrams: 09/07/19 11:38 09/07/19 11:38 Michael Results Last 24 hrs: Microbiology 09/07/19 11:21 Influenza Type A Antigen Screen - Final Nasal, Unspecified NEGATIVE INFLUENZA A VIRUS AG REFERENCE RANGE: NEGATIVE Influenza Type B Antigen Screen - Final NEGATIVE INFLUENZA B VIRUS AG REFERENCE RANGE: NEGATIVE 09/07/19 11:30 Anaerobic Blood Culture - Final Blood - Venous - Lab Draw - Problem List (1) Pneumonia SNOMED Code(s): 970953239 ICD Code: J18.9 - PNEUMONIA, UNSPECIFIED ORGANISM Status: Acute Current Visit: Yes (2) UTI, Urinary tract infectious disease SNOMED Code(s): 00896339 ICD Code: N39.0 - URINARY TRACT INFECTION, SITE NOT SPECIFIED Status: Acute Current Visit: No Problem List Initiated/Reviewed/Updated: Yes Orders Last 24hrs: Active Orders 24 hr Category Date Time Status Admission Diagnosis [ADT] Stat ADT 09/07/19 14:09 Ordered Admission Status [Patient Status] [ADT] Routine ADT 09/07/19 14:09 Active Height and Weight [RC] DAILY Care 09/07/19 15:20 Active Intake and Output [RC] QSHIFT Care 09/07/19 15:21 Active Notify Provider Vital Signs [RC] ASDIRECTED Care 09/07/19 15:21 Active Oxygen Therapy [RC] .PRN Care 09/07/19 15:20 Active Pulse Oximetry [RC] .PRN Care 09/07/19 15:21 Active RT Aerosol Therapy [RC] ASDIRECTED Care 09/07/19 15:23 Active Up With Assistance [RC] ASDIRECTED Care 09/07/19 15:20 Active VTE/DVT Education [RC] PER UNIT ROUTINE Care 09/07/19 15:20 Active Vital Signs [RC] Q4H Care 09/07/19 15:20 Active OT Evaluation and Treatment [CONS] Routine Cons 09/07/19 15:20 Active PT Evaluation and Treatment [CONS] Routine Cons 09/07/19 15:20 Active Respiratory Care Assess and Treatment [CONS] Routine Cons 09/07/19 15:20 Active Regular Diet [DIET] Diet 09/07/19 Dinner Active BASIC METABOLIC PANEL,BMP [CHEM] DAILY Lab 09/08/19 07:00 Ordered CBC W/O DIFF,HEMOGRAM [HEME] DAILY Lab 09/08/19 07:00 Ordered CULTURE BLOOD [BC] Stat Lab 09/07/19 11:30 Results CULTURE BLOOD [BC] Stat Lab 09/07/19 11:38 Received CULTURE SPUTUM + SMEAR [RM] Stat Lab 09/07/19 15:20 Ordered CULTURE URINE [RM] Urgent Lab 09/07/19 13:37 Received GRAM STAIN [RM] Routine Lab 09/07/19 15:20 Ordered MAGNESIUM [CHEM] Routine Lab 09/07/19 15:20 Ordered PHOSPHORUS [CHEM] Routine Lab 09/07/19 15:20 Ordered Acetaminophen [Tylenol] Med 09/07/19 15:20 Ordered 650 mg PO Q4H PRN Albuterol/Ipratropium [DuoNeb 3.0-0.5 MG/3 ML] Med 09/07/19 15:20 Ordered 3 ml NEB Q4H PRN Aspirin [Halfprin] Med 09/08/19 09:00 Ordered 81 mg PO DAILY Baclofen [Baclofen] Med 09/07/19 21:00 Ordered 20 mg PO BID Calcium Carb/Vitamin D3/Vit K1 [Calcium + D Soft Med 09/07/19 16:00 Ordered Chewable Tab] 1 tab PO TIDAC Cyanocobalamin (Vitamin B-12) [Vitamin B-12] Med 09/08/19 09:00 Ordered 1,000 mcg PO DAILY Docusate Sodium [Colace] Med 09/07/19 15:20 Ordered 100 mg PO BID PRN Donepezil [Aricept] Med 09/07/19 21:00 Ordered 10 mg PO BEDTIME Enoxaparin [Lovenox] Med 09/08/19 09:00 Ordered 40 mg SUBCUT DAILY Enzalutamide [Xtandi] Med 09/08/19 09:00 Ordered 160 mg PO DAILY Guaifen/Dextromethorphan/PE [Mucinex Fast-Max Congest- Med 09/07/19 15:26 Ordered Cough] 20 ml PO BID PRN Magnesium Hydroxide [Milk of Magnesia] Med 09/07/19 15:20 Ordered 30 ml PO Q12H PRN Omeprazole Med 09/08/19 09:00 Ordered 20 mg PO DAILY Ondansetron [Zofran] Med 09/07/19 15:20 Ordered 4 mg IVPUSH Q6H PRN Oxybutynin Med 09/07/19 21:00 Ordered 5 mg PO BEDTIME Primidone [Mysoline] Med 09/07/19 15:30 Ordered 50 mg PO .SUPPER Propranolol HCl [Propranolol HCl] Med 09/07/19 21:00 Ordered 80 mg PO BID Sodium Chloride 0.9% [Normal Saline] 1,000 ml Med 09/07/19 15:30 Ordered IV ASDIRECTED Valproic Acid [Depakene] Med 09/07/19 15:30 Ordered 250 mg PO .MORNING,NOON Valproic Acid [Depakene] Med 09/07/19 21:00 Ordered 500 mg PO BEDTIME Blood Culture x2 Reflex Set [OM.PC] Stat Oth 09/07/19 11:19 Ordered Resuscitation Status Routine Resus Stat 09/07/19 15:20 Ordered Medication Orders Acetaminophen (Tylenol) 650 mg PO Q4H PRN PRN Reason: Pain (Mild 1-3)/fever Albuterol/Ipratropium (Duoneb 3.0-0.5 Mg/3 Ml) 3 ml NEB Q4H PRN PRN Reason: shortness of breath/wheezing Aspirin (Halfprin) 81 mg PO DAILY [facility] Docusate Sodium (Colace) 100 mg PO BID PRN PRN Reason: Constipation Donepezil HCl (Aricept) 10 mg PO BEDTIME [facility] Enoxaparin Sodium (Lovenox) 40 mg SUBCUT DAILY [facility] Sodium Chloride (Normal Saline) 1,000 mls @ 75 mls/hr IV ASDIRECTED [facility] Magnesium Hydroxide (Milk Of Magnesia) 30 ml PO Q12H PRN PRN Reason: Constipation Non-Formulary Medication (Baclofen [Baclofen]) 20 mg PO BID [facility] Non-Formulary Medication (Calcium Carb/Vitamin D3/Vit K1 [Calcium + D Soft Chewable Tab]) 1 tab PO TIDAC [facility] Non-Formulary Medication (Cyanocobalamin (Vitamin B-12) [Vitamin B-12]) 1,000 mcg PO DAILY [facility] Non-Formulary Medication (Enzalutamide [Xtandi]) 160 mg PO DAILY [facility] Non-Formulary Medication (Guaifen/Dextromethorphan/Pe [Mucinex Fast-Max Congest- Cough]) 20 ml PO BID PRN PRN Reason: Cough Non-Formulary Medication (Propranolol Hcl [Propranolol Hcl]) 80 mg PO BID [facility] Omeprazole (Omeprazole) 20 mg PO DAILY [facility] Ondansetron HCl (Zofran) 4 mg IVPUSH Q6H PRN PRN Reason: Nausea/Vomiting Oxybutynin Chloride (Oxybutynin) 5 mg PO BEDTIME [facility] Primidone (Mysoline) 50 mg PO .SUPPER [facility] Valproic Acid (Depakene) 250 mg PO .MORNING,NOON [facility] Valproic Acid (Depakene) 500 mg PO BEDTIME [facility] Assessment/Plan Comment:: #UTI -UA was positive for nitrite -Urine culture -IV Rocephin #Probable pneumonia -CT chest concerning for lower lobe infiltrate versus atelectasis -Plan for Gram stain and culture -IV Rocephin plus azithromycin #Hyponatremia -Na 125 -Could be related to dehydration -IVF with normal saline -Monitor sodium #MS with neurogenic bladder -Continue home oxybutynin, baclofen #Memory impairment -Continue donepezil #Seizure disorder -continue home antiepileptics #Celiac disease -Gluten-free diet #Hypertension -Continue home propranolol #Generalized weakness -PT/OT #DVT prophylaxis -Lovenox SQ #Full code
[2019-09-07] MEDS: Primidone 50 MG Tab PO SCH (18:10)
[2019-09-07] MEDS: Acetaminophen 325 MG Tab PO PRN (20:28)
[2019-09-07] MEDS: Baclofen 10 MG Tab PO SCH (20:28)
[2019-09-07] MEDS: Propranolol 20 MG Tab PO SCH (20:28)
[2019-09-07] MEDS: guaiFENesin/Dextromethorphan 100-10 MG/5 ML Soln 5 ML Cup PO PRN (20:29)
[2019-09-07] MEDS ORDERED: Valproic Acid 250 MG Cap PO SCH (21:00)
[2019-09-07] MEDS ORDERED: Oxybutynin 5 MG Tab PO SCH (21:00)
[2019-09-07] MEDS ORDERED: Donepezil 10 MG Tab PO SCH (21:00)
[2019-09-07] MEDS: VITAMIN D3 PO SCH (21:44)
[2019-09-07] MEDS: PHYTONADIONE PO SCH (21:44)
[2019-09-07] MEDS: CALCIUM CARBONATE PO SCH (21:44)
[2019-09-08] MEDS: CALCIUM CARBONATE PO SCH ×3 (05:09→17:37)
[2019-09-08] MEDS: VITAMIN D3 PO SCH ×3 (05:09→17:37)
[2019-09-08] MEDS: PHYTONADIONE PO SCH ×3 (05:09→17:37)
[2019-09-08] MEDS ORDERED: Omeprazole 20 MG Cap.CR PO SCH (06:00)
[2019-09-08 06:58] LABS: ANION GAP 14.2; CHLORIDE,CL 89 mmol/L (101-111); SODIUM,NA 126 mmol/L (135-145)
[2019-09-08] MEDS: Propranolol 20 MG Tab PO SCH (08:16)
[2019-09-08] MEDS: Baclofen 10 MG Tab PO SCH (08:17)
[2019-09-08] MEDS: Valproic Acid 250 MG Cap PO SCH ×2 (08:18→12:30)
[2019-09-08] MEDS ORDERED: Furosemide 40 MG/4 ML VIAL IVPUSH ONE (08:25)
[2019-09-08] MEDS ORDERED: Aspirin 81 MG Tab.EC PO SCH (09:00)
[2019-09-08] MEDS ORDERED: ENZALUTAMIDE 160 MG PO SCH (09:00)
[2019-09-08] MEDS ORDERED: Cyanocobalamin (Vitamin B12) 1,000 MCG Tab PO SCH (09:00)
[2019-09-08] MEDS ORDERED: Enoxaparin 40 MG/0.4 ML Syringe SUBCUT SCH (09:00)
[2019-09-08] MEDS ORDERED: cefTRIAXone 1 GM in Sodium Chloride 0.9% 50 ML IV SCH ×2 (09:00→15:00)
--- NOTE | 2019-09-08 09:17 | PCM.PN ---
- General Info Date of Service: 09/08/19 Admission Dx/Problem (Free Text): Admission Diagnosis/Problem Admission Diagnosis/Problem Pneumonia Subjective Update: Mr. Benton is a 79-year-old male with past medical history significant for seizure disorder, prostate cancer with metastatics to the thoracic and lumbar vertebra and lungs, currently on Lupron, he will be starting chemotherapy next week at [facility], multiple sclerosis with lower extremity weakness and neurogenic bladder with chronic Sheffield in place, hypertension, celiac disease, memory impairment. He was transferred to the ED from [facility] for further evaluation of chronic x 4 days, SOB, hypoxia, generalized weakness. He was found to have UTI. CT chest showed metastasis to lower thoracic and upper lumbar spine, left lower lung infiltrate/atelectasis. Today patient was seen and examined. He appears to be doing fairly okay. He is more awake and alert today than yesterday. Patient was sent having breakfast. He was being fed by the nurse and he seems to be tolerating oral feeds. He denies fever, chills, chest pain, shortness of breath. Review of Microdata showed urine culture positive for gram-negative rods. Functional Status: Reports: Pain Controlled - Review of Systems General: Reports: Weakness HEENT: Reports: No Symptoms Pulmonary: Reports: Cough Cardiovascular: Reports: Dyspnea on Exertion Gastrointestinal: Reports: No Symptoms Genitourinary: Reports: No Symptoms Musculoskeletal: Reports: No Symptoms Skin: Reports: No Symptoms Neurological: Reports: No Symptoms Psychiatric: Reports: No Symptoms - Patient Data Vitals - Most Recent: Last Vital Signs Temp 98.6 F 09/08/19 07:39 Pulse 83 09/08/19 07:39 Resp 24 H 09/08/19 07:39 BP 160/85 H 09/08/19 07:39 Pulse Ox 96 09/08/19 07:39 Weight - Most Recent: 144 lb 6 oz I&O - Last 24 Hours: Intake & Output 09/07/19 09/08/19 09/08/19 22:59 06:59 14:59 Intake Total 20 Output Total 150 300 Balance -130 -300 Lab Results Last 24 Hours: Laboratory Results - last 24 hr 09/07/19 09/07/19 09/07/19 Range/Units 11:38 11:38 11:38 WBC 7.9 (5.0-10.0) 10^3/uL RBC 5.17 (4.6-6.2) 10^6/uL Hgb 17.0 D (14.0-18.0) g/dL Hct 48.6 (40.0-54.0) % MCV 94.0 (80-100) fL MCH 32.9 (27.0-34.0) pg MCHC 35.0 (33.0-35.0) g/dL Plt Count 168 (150-450) 10^3/uL Neut % (Auto) 78.6 H (42.2-75.2) % Lymph % (Auto) 10.3 L (20.5-50.1) % Cache % (Auto) 10.9 H (2-8) % Eos % (Auto) 0.1 L (1.0-3.0) % Baso % (Auto) 0.1 (0.0-1.0) % Sodium 125 L (135-145) mmol/L Potassium 4.6 (3.6-5.0) mmol/L Chloride 89 L (101-111) mmol/L Carbon Dioxide 27.0 (21.0-31.0) mmol/L Anion Gap 13.6 BUN 14 (7-18) mg/dL Creatinine 0.6 (0.6-1.3) mg/dL Est Cr Clr Drug Dosing 97.65 mL/min Estimated GFR (MDRD) > 60 BUN/Creatinine Ratio 23.33 Glucose 95 (74-105) mg/dL POC Glucose (83-110) mg/dl Lactic Acid 1.4 (0.5-2.0) mmol/L Calcium 8.2 L (8.4-10.2) mg/dl Phosphorus (2.5-4.6) mg/dL Magnesium (1.8-2.5) mg/dL Total Bilirubin 0.7 (0.2-1.0) mg/dL AST 26 (10-42) IU/L ALT 14 (10-60) IU/L Alkaline Phosphatase 73 (42-121) IU/L Troponin I < 0.02 (0.00-0.02) ng/ml B-Natriuretic Peptide (0-100) pg/ml Total Protein 7.2 (6.7-8.2) g/dl Albumin 3.3 (3.2-5.5) g/dl Globulin 3.9 Albumin/Globulin Ratio 0.85 Urine Color (YELLOW) Urine Appearance (CLEAR) Urine pH (5.0-9.0) Ur Specific [place] (1.005-1.030) Urine Protein (NEGATIVE) Urine Glucose (UA) (NEGATIVE) Urine Ketones (NEGATIVE) Urine Occult Blood (NEGATIVE) Urine Nitrite (NEGATIVE) Urine Bilirubin (NEGATIVE) Urine Urobilinogen (0.2-1.0) mg/dL Ur Leukocyte Esterase (NEGATIVE) Urine RBC /HPF Urine WBC (0-5/HPF) /HPF Ur Epithelial Cells (NOT SEEN) /HPF Amorphous Sediment (NOT SEEN) /HPF Urine Bacteria (0-FEW/HPF) /HPF Urine Mucus (NOT SEEN) /LPF 09/07/19 09/07/19 09/07/19 Range/Units 11:38 11:38 13:37 WBC (5.0-10.0) 10^3/uL RBC (4.6-6.2) 10^6/uL Hgb (14.0-18.0) g/dL Hct (40.0-54.0) % MCV (80-100) fL MCH (27.0-34.0) pg MCHC (33.0-35.0) g/dL Plt Count (150-450) 10^3/uL Neut % (Auto) (42.2-75.2) % Lymph % (Auto) (20.5-50.1) % Cache % (Auto) (2-8) % Eos % (Auto) (1.0-3.0) % Baso % (Auto) (0.0-1.0) % Sodium (135-145) mmol/L Potassium (3.6-5.0) mmol/L Chloride (101-111) mmol/L Carbon Dioxide (21.0-31.0) mmol/L Anion Gap BUN (7-18) mg/dL Creatinine (0.6-1.3) mg/dL Est Cr Clr Drug Dosing mL/min Estimated GFR (MDRD) BUN/Creatinine Ratio Glucose (74-105) mg/dL POC Glucose (83-110) mg/dl Lactic Acid (0.5-2.0) mmol/L Calcium (8.4-10.2) mg/dl Phosphorus 3.1 (2.5-4.6) mg/dL Magnesium 1.9 (1.8-2.5) mg/dL Total Bilirubin (0.2-1.0) mg/dL AST (10-42) IU/L ALT (10-60) IU/L Alkaline Phosphatase (42-121) IU/L Troponin I (0.00-0.02) ng/ml B-Natriuretic Peptide 193 H (0-100) pg/ml Total Protein (6.7-8.2) g/dl Albumin (3.2-5.5) g/dl Globulin Albumin/Globulin Ratio Urine Color Yellow (YELLOW) Urine Appearance Cloudy (CLEAR) Urine pH 8.0 (5.0-9.0) Ur Specific [place] 1.025 (1.005-1.030) Urine Protein >=300 H (NEGATIVE) Urine Glucose (UA) Negative (NEGATIVE) Urine Ketones 40 H (NEGATIVE) Urine Occult Blood Large H (NEGATIVE) Urine Nitrite Positive H (NEGATIVE) Urine Bilirubin Negative (NEGATIVE) Urine Urobilinogen 1.0 (0.2-1.0) mg/dL Ur Leukocyte Esterase Large H (NEGATIVE) Urine RBC Packed H /HPF Urine WBC Packed H (0-5/HPF) /HPF Ur Epithelial Cells Not seen (NOT SEEN) /HPF Amorphous Sediment Many (NOT SEEN) /HPF Urine Bacteria Moderate H (0-FEW/HPF) /HPF Urine Mucus Moderate H (NOT SEEN) /LPF 09/07/19 09/08/19 09/08/19 Range/Units 18:15 06:00 06:00 WBC 8.3 (5.0-10.0) 10^3/uL RBC 4.80 (4.6-6.2) 10^6/uL Hgb 15.8 (14.0-18.0) g/dL Hct 46.2 (40.0-54.0) % MCV 96.3 (80-100) fL MCH 32.9 (27.0-34.0) pg MCHC 34.2 (33.0-35.0) g/dL Plt Count 161 (150-450) 10^3/uL Neut % (Auto) (42.2-75.2) % Lymph % (Auto) (20.5-50.1) % Cache % (Auto) (2-8) % Eos % (Auto) (1.0-3.0) % Baso % (Auto) (0.0-1.0) % Sodium 126 L (135-145) mmol/L Potassium 4.2 (3.6-5.0) mmol/L Chloride 89 L (101-111) mmol/L Carbon Dioxide 27.0 (21.0-31.0) mmol/L Anion Gap 14.2 BUN 15 (7-18) mg/dL Creatinine 0.7 (0.6-1.3) mg/dL Est Cr Clr Drug Dosing 80.56 mL/min Estimated GFR (MDRD) > 60 BUN/Creatinine Ratio Glucose 104 (74-105) mg/dL POC Glucose 99 (83-110) mg/dl Lactic Acid (0.5-2.0) mmol/L Calcium 7.7 L (8.4-10.2) mg/dl Phosphorus (2.5-4.6) mg/dL Magnesium (1.8-2.5) mg/dL Total Bilirubin (0.2-1.0) mg/dL AST (10-42) IU/L ALT (10-60) IU/L Alkaline Phosphatase (42-121) IU/L Troponin I (0.00-0.02) ng/ml B-Natriuretic Peptide (0-100) pg/ml Total Protein (6.7-8.2) g/dl Albumin (3.2-5.5) g/dl Globulin Albumin/Globulin Ratio Urine Color (YELLOW) Urine Appearance (CLEAR) Urine pH (5.0-9.0) Ur Specific [place] (1.005-1.030) Urine Protein (NEGATIVE) Urine Glucose (UA) (NEGATIVE) Urine Ketones (NEGATIVE) Urine Occult Blood (NEGATIVE) Urine Nitrite (NEGATIVE) Urine Bilirubin (NEGATIVE) Urine Urobilinogen (0.2-1.0) mg/dL Ur Leukocyte Esterase (NEGATIVE) Urine RBC /HPF Urine WBC (0-5/HPF) /HPF Ur Epithelial Cells (NOT SEEN) /HPF Amorphous Sediment (NOT SEEN) /HPF Urine Bacteria (0-FEW/HPF) /HPF Urine Mucus (NOT SEEN) /LPF Michael Results Last 24 Hours: Microbiology 09/07/19 13:37 Urine Culture - Preliminary Urine, [place] Cath ([place]) 09/07/19 11:21 Influenza Type A Antigen Screen - Final Nasal, Unspecified NEGATIVE INFLUENZA A VIRUS AG REFERENCE RANGE: NEGATIVE Influenza Type B Antigen Screen - Final NEGATIVE INFLUENZA B VIRUS AG REFERENCE RANGE: NEGATIVE 09/07/19 11:30 Anaerobic Blood Culture - Final Blood - Venous - Lab Draw Med Orders - Current: Current Medications Acetaminophen (Tylenol) 650 mg PO Q4H PRN PRN Reason: Pain (Mild 1-3)/fever Last Admin: 09/07/19 20:28 Dose: 650 mg Albuterol/Ipratropium (Duoneb 3.0-0.5 Mg/3 Ml) 3 ml NEB Q4H PRN PRN Reason: shortness of breath/wheezing Aspirin (Halfprin) 81 mg PO DAILY [facility] Last Admin: 09/08/19 08:16 Dose: 81 mg Baclofen (Lioresal) 20 mg PO BID [facility] Last Admin: 09/08/19 08:17 Dose: 20 mg Cyanocobalamin (Vitamin B12) 1,000 mcg PO DAILY [facility] Last Admin: 09/08/19 08:17 Dose: 1,000 mcg Docusate Sodium (Colace) 100 mg PO BID PRN PRN Reason: Constipation Donepezil HCl (Aricept) 10 mg PO BEDTIME [facility] Last Admin: 09/07/19 20:28 Dose: 10 mg Enoxaparin Sodium (Lovenox) 40 mg SUBCUT DAILY [facility] Last Admin: 09/08/19 08:19 Dose: 40 mg Ergocalciferol (Vitamin D2) 1.25 mg PO MoTh@0900 [facility] Guaifenesin/Phenylephrine HCl (Robitussin Dm) 10 ml PO BID PRN PRN Reason: Cough Last Admin: 09/07/19 20:29 Dose: 10 ml Ceftriaxone Sodium 1 gm/ (Sodium Chloride) 50 mls @ 100 mls/hr IV Q24H [facility] Magnesium Hydroxide (Milk Of Magnesia) 30 ml PO Q12H PRN PRN Reason: Constipation Calcium Carb/Vitamin D3/Vit K1 Soft Chewable #Own Med# 1 tab PO TIDAC [facility] Last Admin: 09/08/19 05:09 Dose: 1 tab Omeprazole (Omeprazole) 20 mg PO ACBRK [facility] Last Admin: 09/08/19 05:09 Dose: 20 mg Ondansetron HCl (Zofran) 4 mg IVPUSH Q6H PRN PRN Reason: Nausea/Vomiting Oxybutynin Chloride (Oxybutynin) 5 mg PO BEDTIME [facility] Last Admin: 09/07/19 20:28 Dose: 5 mg Primidone (Mysoline) 50 mg PO WITHDINNER [facility] Last Admin: 09/07/19 18:10 Dose: 50 mg Propranolol HCl (Inderal) 80 mg PO BID [facility] Last Admin: 09/08/19 08:16 Dose: 80 mg Sodium Chloride (Sodium Chloride) 1 gm PO Q8HR [facility] Valproic Acid (Depakene) 250 mg PO 0800,1200 [facility] Last Admin: 09/08/19 08:18 Dose: 250 mg Valproic Acid (Depakene) 500 mg PO BEDTIME [facility] Last Admin: 09/07/19 20:28 Dose: 500 mg Discontinued Medications Furosemide (Lasix) 40 mg IVPUSH NOW ONE Stop: 09/08/19 08:26 Azithromycin 500 mg/ Sodium (Chloride) 250 mls @ 250 mls/hr IV ONETIME ONE Stop: 09/07/19 15:05 Last Admin: 09/07/19 14:45 Dose: 250 mls/hr Ceftriaxone Sodium 1 gm/ (Sodium Chloride) 50 mls @ 100 mls/hr IV ONETIME ONE Stop: 09/07/19 14:35 Last Admin: 09/07/19 14:22 Dose: 100 mls/hr Sodium Chloride (Normal Saline) 1,000 mls @ 75 mls/hr IV ASDIRECTED [facility] Last Infusion: 09/07/19 20:41 Dose: 50 mls/hr Ceftriaxone Sodium 1 gm/ (Sodium Chloride) 50 mls @ 100 mls/hr IV Q24H [facility] Sodium Chloride (Normal Saline) 1,000 mls @ 50 mls/hr IV ASDIRECTED [facility] - Exam Quality Assessment: Supplemental Oxygen, DVT Prophylaxis General: Alert, Oriented HEENT: Pupils Equal, Pupils Reactive, EOMI, Mucous Membr. Moist/[place] Neck: Supple Lungs: Clear to Auscultation, Normal Respiratory Effort Cardiovascular: Regular Rate, Regular Rhythm GI/Abdominal Exam: Normal Bowel Sounds, Soft, Non-Tender, No Organomegaly, No Distention, No Abnormal Bruit, No Mass, Pelvis Stable (Male) Exam: No Hernia, Normal Inspection, Normal Prostate, Circumcised Back Exam: Normal Inspection, Full Range of Motion Extremities: Normal Inspection, Normal Range of Motion, Non-Tender, No Pedal Edema, Normal Capillary Refill, Other (weakness) Skin: Warm, Dry, Intact Wound/Incisions: Healing Well Neurological: Other (Alert but slow to respond to questions) Psy/Mental Status: Alert, Normal Affect, Normal Mood Sepsis Event Note - Evaluation Sepsis Screening Result: No Definite Risk - Focused Exam Vital Signs: Vital Signs Temp Pulse Resp BP BP Pulse Ox 09/08/19 07:39 98.6 F 83 24 H 160/85 H 96 09/08/19 04:00 98 F 79 22 H 160/82 H 96 09/08/19 00:00 98.6 F Date Exam was Performed: 09/08/19 Time Exam was Performed: 09:12 - Problem List & Annotations (1) Pneumonia SNOMED Code(s): 972610406 Code(s): J18.9 - PNEUMONIA, UNSPECIFIED ORGANISM Status: Acute Current Visit: Yes Qualifiers: Pneumonia type: due to unspecified organism (2) UTI, Urinary tract infectious disease SNOMED Code(s): 74396652 Code(s): N39.0 - URINARY TRACT INFECTION, SITE NOT SPECIFIED Status: Acute Current Visit: No (3) Aspiration pneumonia SNOMED Code(s): 479662695 Code(s): J69.0 - PNEUMONITIS DUE TO INHALATION OF FOOD AND VOMIT Status: Acute Current Visit: Yes - Problem List Review Problem List Initiated/Reviewed/Updated: Yes - My Orders Last 24 Hours: My Active Orders 09/07/19 11:38 PROCALCITONIN [REF] Stat 09/07/19 15:20 Height and Weight [RC] 06 Oxygen Therapy [RC] .PRN Up With Assistance [RC] ASDIRECTED VTE/DVT Education [RC] PER UNIT ROUTINE Vital Signs [RC] 00,04,08,12,16,20 OT Evaluation and Treatment [CONS] Routine PT Evaluation and Treatment [CONS] Routine Respiratory Care Assess and Treatment [CONS] Routine CULTURE SPUTUM + SMEAR [RM] Stat Acetaminophen [Tylenol] 650 mg PO Q4H PRN Albuterol/Ipratropium [DuoNeb 3.0-0.5 MG/3 ML] 3 ml NEB Q4H PRN Docusate Sodium [Colace] 100 mg PO BID PRN Magnesium Hydroxide [Milk of Magnesia] 30 ml PO Q12H PRN Ondansetron [Zofran] 4 mg IVPUSH Q6H PRN Resuscitation Status Routine 09/07/19 15:21 Intake and Output [RC] QSHIFT Notify Provider Vital Signs [RC] ASDIRECTED Pulse Oximetry [RC] .PRN 09/07/19 15:23 RT Aerosol Therapy [RC] ASDIRECTED 09/07/19 15:26 Dextromethorphan/guaiFENesin [Robitussin DM] 10 ml PO BID PRN 09/07/19 15:56 OT Evaluation and Treatment [CONS] Routine 09/07/19 16:00 Calcium Carb/Vitamin D3/Vit K1 [Calcium + D Soft Chewable Tab] 1 tab PO TIDAC 09/07/19 16:28 Dietary Supplements [RC] TIDMEALS 09/07/19 18:00 Primidone [Mysoline] 50 mg PO WITHDINNER 09/07/19 21:00 Baclofen [Lioresal] 20 mg PO BID Donepezil [Aricept] 10 mg PO BEDTIME Oxybutynin 5 mg PO BEDTIME Propranolol [Inderal] 80 mg PO BID Valproic Acid [Depakene] 500 mg PO BEDTIME 09/07/19 Dinner Gluten Free Diet [DIET] Thickened Liquids [DIET] 09/08/19 06:00 Omeprazole 20 mg PO ACBRK 09/08/19 08:00 Valproic Acid [Depakene] 250 mg PO 0800,1200 09/08/19 09:00 Aspirin [Halfprin] 81 mg PO DAILY Cyanocobalamin (Vitamin B12) [Vitamin B12] 1,000 mcg PO DAILY Enoxaparin [Lovenox] 40 mg SUBCUT DAILY Sodium Chloride 1 gm PO Q8HR cefTRIAXone [Rocephin] 1 gm Sodium Chloride 0.9% [Normal Saline] 50 ml IV Q24H 09/11/19 09:00 Ergocalciferol (Vitamin D2) [Vitamin D2] 1.25 mg PO MoTh@0900 - Plan Plan:: #Catheter associated UTI -UA was positive for nitrite -Urine culture positive for gram negative rods -Continue IV Rocephin #Pneumonia. Probable aspiration pneumonia -CT chest concerning for lower lobe infiltrate versus atelectasis -Patient yet to give sputum for Gram stain and culture -Speech and swallow evaluation -Aspiration precautions #Possible pulmonary congestion as per CT findings -Lasix 40 mg IV push times 2 #Hyponatremia -Na 126 -Could be related to dehydration -IVF with normal saline -Monitor sodium #MS with neurogenic bladder -Continue home oxybutynin, baclofen #Memory impairment -Continue donepezil #Seizure disorder -continue home antiepileptics #Celiac disease -Gluten-free diet #Hypertension -Continue home propranolol #Generalized weakness -PT/OT #DVT prophylaxis -Lovenox SQ #Full code
[2019-09-08] MEDS: Sodium Chloride 1 GM Tab PO SCH ×2 (09:49→13:57)
[2019-09-08] MEDS ORDERED: Sodium Chloride 0.9% 1,000 ML IV SCH (10:45)
[2019-09-08] MEDS: guaiFENesin/Dextromethorphan 100-10 MG/5 ML Soln 5 ML Cup PO PRN (10:52)
[2019-09-08] MEDS ORDERED: Furosemide 40 MG/4 ML VIAL IVPUSH SCH (17:00)
[2019-09-08] MEDS ORDERED: Albuterol/Ipratropium 3.0-0.5 MG/3 ML Neb Soln NEB SCH (17:00)
[2019-09-08] MEDS: Acetaminophen 325 MG Tab PO PRN (17:06)
[2019-09-08] MEDS ORDERED: hydrALAZINE 20 MG/ML SDV IVPUSH STA (17:12)
[2019-09-08 17:14] VITALS: BP 192/99; PULSE 91
--- NOTE | 2019-09-08 17:41 | PCM.DCSUM1 ---
Discharge Summary - Hospital Course Free Text/Narrative:: Mr. Benton is a 79-year-old male with past medical history significant for seizure disorder, prostate cancer with metastatics to the thoracic and lumbar vertebra and lungs, currently on Lupron, he will be starting chemotherapy next week at [facility], multiple sclerosis with lower extremity weakness and neurogenic bladder with chronic Sheffield in place, hypertension, celiac disease, memory impairment. He was transferred to the ED from [facility] for further evaluation of chronic x 4 days, SOB, hypoxia, generalized weakness. He was found to have UTI. Urine culture was positive for gram-negative rods. CT chest showed metastasis to lower thoracic and upper lumbar spine, left lower lung infiltrate/atelectasis. This morning patient was doing fairly okay. He was more awake and alert this morning and was tolerating oral feeds. Plan was to continue IV antibiotic. I was called to see patient this afternoon due to increasing dyspnea with grunting respiration. BP was elevated. He was saturating at 92% on 3 L. I ordered IV hydralazine and increase supplemental oxygen. I had a discussion with the family regarding patient clinical condition. They still requested all treatments on patient remain full code. I called [facility] to transfer the patient for further management. Spoke with Dr. Landaverde who agreed to accept the patient. Diagnosis: Stroke: No - Discharge Data Discharge Date: 09/08/19 Discharge Disposition: DC/Tfer to Acute Hospital 02 Condition: Stable - Referral to Home Health Primary Care Physician: PCP Unobtainable - Discharge Diagnosis/Problem(s) (1) Pneumonia SNOMED Code(s): 635725248 ICD Code: J18.9 - PNEUMONIA, UNSPECIFIED ORGANISM Status: Acute Current Visit: Yes Qualifiers: Pneumonia type: due to unspecified organism (2) UTI, Urinary tract infectious disease SNOMED Code(s): 30421334 ICD Code: N39.0 - URINARY TRACT INFECTION, SITE NOT SPECIFIED Status: Acute Current Visit: No (3) Aspiration pneumonia SNOMED Code(s): 618681672 ICD Code: J69.0 - PNEUMONITIS DUE TO INHALATION OF FOOD AND VOMIT Status: Acute Current Visit: Yes - Patient Summary/Data Consults: Consultations 09/07/19 15:20 OT Evaluation and Treatment [CONS] Routine PT Evaluation and Treatment [CONS] Routine Respiratory Care Assess and Treatment [CONS] Routine 09/07/19 15:56 OT Evaluation and Treatment [CONS] Routine - Discharge Plan *PRESCRIPTION DRUG MONITORING PROGRAM REVIEWED*: Not Applicable *COPY OF PRESCRIPTION DRUG MONITORING REPORT IN PATIENT AMY: Not Applicable Home Medications: Home Meds Ascorbic Acid 1,000 mg PO .NOON 04/09/14 [History] Baclofen 20 mg PO BID 04/09/14 [History] Calcium Carb/Vitamin D3/Vit K1 [Calcium + D Soft Chewable Tab] 1 tab PO TIDAC [History] Donepezil HCl 10 mg PO BEDTIME 04/09/14 [History] Ipratropium [Atrovent 0.03% Nasal [place]] 2 sprays NASBOTH QID PRN 04/09/14 [ History] Leuprolide [Lupron Depot 4-Month] 30 mg IM .[id number] 04/09/14 [History] Multivitamin [Multi-Vitamin Daily] 1 tab PO DAILY 04/09/14 [History] [place]-3/DHA/Epa/Fish Oil [Fish Oil 1,000 mg Softgel] 600 mg PO BID 04/09/14 [ History] Primidone 50 mg PO .SUPPER 04/09/14 [History] Valproic Acid [Depakene] 250 mg PO .MORNING,NOON 04/09/14 [History] Aspirin [Adult Low Dose Aspirin EC] 81 mg PO DAILY 07/03/16 [History] Cyanocobalamin (Vitamin B-12) [Vitamin B-12] 1,000 mcg PO DAILY 07/03/16 [ History] Omeprazole 20 mg PO DAILY 07/03/16 [History] Lactobacillus Rhamnosus [id number] [Probiotic Digestive Care] 1 cap PO DAILY [History] Cranberry Fruit Concentrate [Cranberry] 900 mg PO DAILY 03/01/19 [History] Valproic Acid 500 mg PO BEDTIME 03/01/19 [History] Cannabidiol (Cbd) Extract [CBD Oil] 1 drop TOP BID 06/16/19 [History] Ergocalciferol (Vitamin D2) [Vitamin D2] 50,000 unit PO .TWICE A WEEK 06/16/19 [ History] Oxybutynin 5 mg PO BEDTIME 06/16/19 [History] guaiFENesin [Robitussin] 100 mg PO Q6H PRN 06/16/19 [History] Cider Vinegar [Apple Cider Vinegar] 600 mg PO DAILY 06/17/19 [History] Guaifen/Dextromethorphan/PE [Mucinex Fast-Max Congest-Cough] 20 ml PO BID PRN [History] Lidocaine 5% [Lidoderm 5%] 700 mg TOP Q24H #30 patch 06/17/19 [Rx] Enzalutamide [Xtandi] 160 mg PO DAILY 09/07/19 [History] Ondansetron [Zofran ODT] 4 mg PO Q8H PRN 09/07/19 [History] Propranolol HCl 80 mg PO BID 09/07/19 [History] Referrals: PCP,Unobtain [Primary Care Provider] - - Discharge Summary/Plan Comment DC Time >30 min.: Yes - General Info Date of Service: 09/08/19 Admission Dx/Problem (Free Text: Admission Diagnosis/Problem Admission Diagnosis/Problem Pneumonia Subjective Update: Mr. Benton is a 79-year-old male with past medical history significant for seizure disorder, prostate cancer with metastatics to the thoracic and lumbar vertebra and lungs, currently on Lupron, he will be starting chemotherapy next week at [facility], multiple sclerosis with lower extremity weakness and neurogenic bladder with chronic Sheffield in place, hypertension, celiac disease, memory impairment. He was transferred to the ED from [facility] clinic for further evaluation of chronic x 4 days, SOB, hypoxia, generalized weakness. He was found to have UTI. CT chest showed metastasis to lower thoracic and upper lumbar spine, left lower lung infiltrate/atelectasis. Today patient was seen and examined. He appears to be doing fairly okay. He is more awake and alert today than yesterday. Patient was sent having breakfast. He was being fed by the nurse and he seems to be tolerating oral feeds. He denies fever, chills, chest pain, shortness of breath. Review of Microdata showed urine culture positive for gram-negative rods. Functional Status: Reports: Pain Controlled - Review of Systems General: Reports: No Symptoms HEENT: Reports: No Symptoms Pulmonary: Reports: No Symptoms Cardiovascular: Reports: No Symptoms Gastrointestinal: Reports: No Symptoms Genitourinary: Reports: No Symptoms Musculoskeletal: Reports: No Symptoms Skin: Reports: No Symptoms Neurological: Reports: No Symptoms Psychiatric: Reports: No Symptoms - Patient Data Vitals - Most Recent: Last Vital Signs Temp 100.6 F 09/08/19 17:00 Pulse 91 09/08/19 17:00 Resp 28 H 09/08/19 17:00 BP 192/99 H 09/08/19 17:00 Pulse Ox 96 09/08/19 17:00 Weight - Most Recent: 144 lb 6 oz I&O - Last 24 hours: Intake & Output 09/08/19 09/08/19 09/08/19 06:59 14:59 22:59 Intake Total 430 Output Total 300 Balance -300 430 Lab Results - Last 24 hrs: Laboratory Results - last 24 hr 09/07/19 09/08/19 09/08/19 Range/Units 18:15 06:00 06:00 WBC 8.3 (5.0-10.0) 10^3/uL RBC 4.80 (4.6-6.2) 10^6/uL Hgb 15.8 (14.0-18.0) g/dL Hct 46.2 (40.0-54.0) % MCV 96.3 (80-100) fL MCH 32.9 (27.0-34.0) pg MCHC 34.2 (33.0-35.0) g/dL Plt Count 161 (150-450) 10^3/uL Sodium 126 L (135-145) mmol/L Potassium 4.2 (3.6-5.0) mmol/L Chloride 89 L (101-111) mmol/L Carbon Dioxide 27.0 (21.0-31.0) mmol/L Anion Gap 14.2 BUN 15 (7-18) mg/dL Creatinine 0.7 (0.6-1.3) mg/dL Est Cr Clr Drug Dosing 80.56 mL/min Estimated GFR (MDRD) > 60 Glucose 104 (74-105) mg/dL POC Glucose 99 (83-110) mg/dl Calcium 7.7 L (8.4-10.2) mg/dl WILLIE Results - Last 24 hrs: Microbiology 09/07/19 11:30 Aerobic Blood Culture - Preliminary Blood - Venous - Lab Draw NO GROWTH AFTER 1 DAY Anaerobic Blood Culture - Final 09/07/19 11:38 Aerobic Blood Culture - Preliminary Blood - Venous NO GROWTH AFTER 1 DAY Anaerobic Blood Culture - Preliminary NO GROWTH AFTER 1 DAY 09/07/19 13:37 Urine Culture - Preliminary Urine, Sheffield Cath (Indwelling) 09/07/19 11:21 Influenza Type A Antigen Screen - Final Nasal, Unspecified NEGATIVE INFLUENZA A VIRUS AG REFERENCE RANGE: NEGATIVE Influenza Type B Antigen Screen - Final NEGATIVE INFLUENZA B VIRUS AG REFERENCE RANGE: NEGATIVE Med Orders - Current: Current Medications Acetaminophen (Tylenol) 650 mg PO Q4H PRN PRN Reason: Pain (Mild 1-3)/fever Last Admin: 09/08/19 17:06 Dose: 650 mg Albuterol/Ipratropium (Duoneb 3.0-0.5 Mg/3 Ml) 3 ml NEB Q4H PRN PRN Reason: shortness of breath/wheezing Last Admin: 09/08/19 12:48 Dose: 3 ml Albuterol/Ipratropium (Duoneb 3.0-0.5 Mg/3 Ml) 3 ml NEB QIDRT [facility] Last Admin: 09/08/19 16:58 Dose: 3 ml Aspirin (Halfprin) 81 mg PO DAILY [facility] Last Admin: 09/08/19 08:16 Dose: 81 mg Baclofen (Lioresal) 20 mg PO BID [facility] Last Admin: 09/08/19 08:17 Dose: 20 mg Cyanocobalamin (Vitamin B12) 1,000 mcg PO DAILY [facility] Last Admin: 09/08/19 08:17 Dose: 1,000 mcg Docusate Sodium (Colace) 100 mg PO BID PRN PRN Reason: Constipation Donepezil HCl (Aricept) 10 mg PO BEDTIME [facility] Last Admin: 09/07/19 20:28 Dose: 10 mg Enoxaparin Sodium (Lovenox) 40 mg SUBCUT DAILY [facility] Last Admin: 09/08/19 08:19 Dose: 40 mg Ergocalciferol (Vitamin D2) 1.25 mg PO MoTh@0900 [facility] Guaifenesin/Phenylephrine HCl (Robitussin Dm) 10 ml PO BID PRN PRN Reason: Cough Last Admin: 09/08/19 10:52 Dose: 10 ml Ceftriaxone Sodium 1 gm/ (Sodium Chloride) 50 mls @ 100 mls/hr IV Q24H [facility] Last Admin: 09/08/19 09:49 Dose: 100 mls/hr Sodium Chloride (Normal Saline) 1,000 mls @ 50 mls/hr IV ASDIRECTED [facility] Magnesium Hydroxide (Milk Of Magnesia) 30 ml PO Q12H PRN PRN Reason: Constipation Calcium Carb/Vitamin D3/Vit K1 Soft Chewable #Own Med# 1 tab PO TIDAC [facility] Last Admin: 09/08/19 12:36 Dose: 1 tab Omeprazole (Omeprazole) 20 mg PO ACBRK [facility] Last Admin: 09/08/19 05:09 Dose: 20 mg Ondansetron HCl (Zofran) 4 mg IVPUSH Q6H PRN PRN Reason: Nausea/Vomiting Oxybutynin Chloride (Oxybutynin) 5 mg PO BEDTIME [facility] Last Admin: 09/07/19 20:28 Dose: 5 mg Primidone (Mysoline) 50 mg PO WITHDINNER [facility] Last Admin: 09/07/19 18:10 Dose: 50 mg Propranolol HCl (Inderal) 80 mg PO BID [facility] Last Admin: 09/08/19 08:16 Dose: 80 mg Sodium Chloride (Sodium Chloride) 1 gm PO Q8HR [facility] Last Admin: 09/08/19 13:57 Dose: 1 gm Valproic Acid (Depakene) 250 mg PO 0800,1200 [facility] Last Admin: 09/08/19 12:30 Dose: 250 mg Valproic Acid (Depakene) 500 mg PO BEDTIME [facility] Last Admin: 09/07/19 20:28 Dose: 500 mg Discontinued Medications Furosemide (Lasix) 40 mg IVPUSH NOW ONE Stop: 09/08/19 08:26 Last Admin: 09/08/19 09:46 Dose: 40 mg Furosemide (Lasix) 40 mg IVPUSH DAILY [facility] Stop: 09/08/19 17:01 Last Admin: 09/08/19 16:57 Dose: 40 mg Hydralazine HCl (Apresoline) 20 mg IVPUSH ONETIME [facility] Stop: 09/08/19 17:13 Azithromycin 500 mg/ Sodium (Chloride) 250 mls @ 250 mls/hr IV ONETIME ONE Stop: 09/07/19 15:05 Last Admin: 09/07/19 14:45 Dose: 250 mls/hr Ceftriaxone Sodium 1 gm/ (Sodium Chloride) 50 mls @ 100 mls/hr IV ONETIME ONE Stop: 09/07/19 14:35 Last Admin: 09/07/19 14:22 Dose: 100 mls/hr Sodium Chloride (Normal Saline) 1,000 mls @ 75 mls/hr IV ASDIRECTED [facility] Last Infusion: 09/07/19 20:41 Dose: 50 mls/hr Ceftriaxone Sodium 1 gm/ (Sodium Chloride) 50 mls @ 100 mls/hr IV Q24H [facility] Sodium Chloride (Normal Saline) 1,000 mls @ 50 mls/hr IV ASDIRECTED [facility] - Exam Quality Assessment: Reports: Supplemental Oxygen, DVT Prophylaxis General: Reports: Alert, Oriented HEENT: Reports: Pupils Equal, Pupils Reactive, EOMI, Mucous Membr. Moist/[place] Neck: Reports: Supple Lungs: Reports: Clear to Auscultation, Normal Respiratory Effort Cardiovascular: Reports: Regular Rate, Regular Rhythm GI/Abdominal Exam: Normal Bowel Sounds, Soft, Non-Tender, No Organomegaly, No Distention, No Abnormal Bruit, No Mass, Pelvis Stable (Male) Exam: No Hernia, Normal Inspection, Normal Prostate, Circumcised Rectal (Males) Exam: Normal Exam, Normal Rectal Tone, Prostate Normal Back Exam: Reports: Normal Inspection, Full Range of Motion Extremities: Normal Inspection, Normal Range of Motion, Non-Tender, No Pedal Edema, Normal Capillary Refill Skin: Reports: Warm, Dry, Intact Wound/Incisions: Reports: Healing Well Neurological: Reports: No New Focal Deficit Psy/Mental Status: Reports: Alert, Normal Affect, Normal Mood
[2019-09-08] MEDS: Primidone 50 MG Tab PO SCH (19:00)
[2019-09-11] MEDS ORDERED: Ergocalciferol (Vitamin D2) 1.25 MG Cap PO SCH (09:00)
== END 2019-09-08 18:00 | DRG 698 ==
LOC: DL.ED 11:42 → DL.MS 14:09 → DL.ED 14:30
PROVIDERS: ADMIT Student in an Organized Health Care Education/Training Program; ATTEND Student in an Organized Health Care Education/Training Program
DX: T83.518A Infection and inflammatory reaction due to other urinary catheter, initial encounter (principal); J69.0 Pneumonitis due to inhalation of food and vomit; E87.1 Hypo-osmolality and hyponatremia; C78.00 Secondary malignant neoplasm of unspecified lung; C79.51 Secondary malignant neoplasm of bone; C61 Malignant neoplasm of prostate; J18.9 Pneumonia, unspecified organism; N31.9 Neuromuscular dysfunction of bladder, unspecified; G40.909 Epilepsy, unspecified, not intractable, without status epilepticus; H54.7 Unspecified visual loss; I10 Essential (primary) hypertension; Z98.49 Cataract extraction status, unspecified eye; K90.0 Celiac disease; Z87.440 Personal history of urinary (tract) infections; Z88.1 Allergy status to other antibiotic agents; M81.0 Age-related osteoporosis without current pathological fracture; G35 Multiple sclerosis; Z85.46 Personal history of malignant neoplasm of prostate; Z99.3 Dependence on wheelchair; Z88.8 Allergy status to other drugs, medicaments and biological substances; Z79.82 Long term (current) use of aspirin; Z79.899 Other long term (current) drug therapy
CPT/HCPCS: 36415; 71045; 71250; 80048; 80053; 81001; 82962; 83605; 83735; 83880; 84100; 84145; 84484; 85025; 85027; 87040; 87086; 87088; 87186; 87804; 92610-GN; 93005; 94640; 99284; 99285-25; A9270-GY; J0360; J0456; J0696; J1650; J1940; J7030; J7050; J7620-GY